=== PATIENT | female | born 1990 | race Caucasian/White ===

== ENCOUNTER 2019-06-22 20:18 | Emergency (ER) | payer BC ==
[2019-06-22] MEDS ORDERED: ONDANSETRON HCL INJ/PF 4 MG/2 ML SDV IV ONE (20:34)
[2019-06-22] MEDS ORDERED: NORMAL SALINE 1000 ML 1,000 ML IV ONE (20:34)
--- NOTE | 2019-06-22 20:35 | ER Document Report ---
ED Medical Screen (RME) - General Chief Complaint: Possible Kidney Stone Stated Complaint: POSSIBLE KIDNEY INFECTION Time Seen by Provider: 06/22/19 20:33 Primary Care Provider: RUBY NORTH [Primary Care Provider] - Follow up as needed Mode of Arrival: Ambulatory Information source: Patient Notes: Patient presents complaining of right flank pain that wraps around to the right side of abdomen for the past 2 days. Patient is concerned that she may have a kidney infection. Patient reports dysuria and nausea. No fever. Patient with a history of lupus, fibromyalgia and bipolar disorder. I have greeted and performed a rapid initial assessment of this patient. A comprehensive ED assessment and evaluation of the patient, analysis of test results and completion of the medical decision making process will be conducted by additional ED providers. Physical Exam - Vital signs Vitals: Temp Pulse Resp BP Pulse Ox 98.3 F 110 H 20 149/85 H 97 06/22/19 20:24 06/22/19 20:24 06/22/19 20:24 06/22/19 20:24 06/22/19 20:24 - Back Back: CVA tenderness - Right Course - Vital Signs Vital signs: Temp Pulse Resp BP Pulse Ox 98.3 F 110 H 20 149/85 H 97 06/22/19 20:24 06/22/19 20:24 06/22/19 20:24 06/22/19 20:24 06/22/19 20:24 Doctor's Discharge - Discharge Referrals: RUBY NORTH [Primary Care Provider] - Follow up as needed
[2019-06-22 21:26] LABS: APPEARANCE,URINE TURBID; BILIRUBIN,URINE NEGATIVE (NEGATIVE); COLOR,URINE YELLOW; GLUCOSE, URINE NEGATIVE (NEGATIVE); KETONES,URINE NEGATIVE (NEGATIVE); LEUKOCYTE ESTERASE,URINE LARGE (NEGATIVE); NITRITE,URINE NEGATIVE (NEGATIVE); PROTEIN,URINE 100 mg/dL (NEGATIVE); URINE SPECIFIC GRAVITY 1.015; UROBILINOGEN,URINE NEGATIVE mg/dL (<2.0)
[2019-06-22] MEDS ORDERED: CEFTRIAXONE 1 GM/D5W RTU 1 GM/50 ML RTUPB IV ONE (22:32)
[2019-06-22] MEDS ORDERED: MORPHINE SULFATE 10 MG/ML INJ IV ONE (22:32)
--- NOTE | 2019-06-22 22:33 | ER Document Report ---
ED GI/ - General Chief Complaint: Flank Pain Stated Complaint: POSSIBLE KIDNEY INFECTION Time Seen by Provider: 06/22/19 20:33 Mode of Arrival: Ambulatory Notes: Patient is a 28-year-old female that comes emergency department for chief complaint of right flank pain, lower abdominal pain, nausea. She states she has had dysuria for several days as well but today she worsened and started having chills as well. She denies fever, vomiting, history of kidney stones. She denies any surgeries. Past medical history of lupus, fibromyalgia, bipolar disorder. - Related Data Allergies/Adverse Reactions: iodine Allergy (Verified 06/22/19 20:36) latex Allergy (Verified 06/22/19 20:36) promethazine [From Phenergan] Allergy (Verified 06/22/19 20:36) shellfish derived Allergy (Verified 06/22/19 20:36) Sulfa (Sulfonamide Antibiotics) Allergy (Verified 06/22/19 20:36) tramadol Allergy (Verified 06/22/19 20:36) Past Medical History - General Information source: Patient - Social History Smoking Status: Never Smoker Chew tobacco use (# tins/day): No Frequency of alcohol use: None Drug Abuse: None Lives with: Family Family History: Reviewed & Not Pertinent Patient has suicidal ideation: No Patient has homicidal ideation: No Musculoskeletal Medical History: Reports Hx Fibromyalgia, Reports Hx Systemic Lupus Erythematosus Psychiatric Medical History: Reports: Hx Bipolar Disorder Past Surgical History: Reports: Hx Appendectomy, Hx Orthopedic Surgery - bilat hip replacement - Immunizations Hx Diphtheria, Pertussis, Tetanus Vaccination: Yes Review of Systems - Review of Systems Constitutional: See HPI EENT: No symptoms reported Cardiovascular: No symptoms reported Respiratory: No symptoms reported Gastrointestinal: See HPI Genitourinary: See HPI Female Genitourinary: No symptoms reported Musculoskeletal: No symptoms reported Skin: No symptoms reported Hematologic/Lymphatic: No symptoms reported Neurological/Psychological: No symptoms reported Physical Exam - Vital signs Vitals: Temp Pulse Resp BP Pulse Ox 98.3 F 110 H 20 149/85 H 97 06/22/19 20:24 06/22/19 20:24 06/22/19 20:24 06/22/19 20:24 06/22/19 20:24 - Notes Notes: GENERAL: Does not appear to be in distress, slightly ill-appearing. Still alert, cooperative, talkative HEAD: Normocephalic, atraumatic. EYES: Pupils equal, round, and reactive to light. Extraocular movements intact. ENT: Oral mucosa moist, tongue midline. Oropharynx unremarkable. Airway patent. LUNGS: Clear to auscultation bilaterally, no wheezes, rales, or rhonchi. No respiratory distress. HEART: Regular rate and rhythm. No murmur ABDOMEN: There is some mild generalized suprapubic tenderness and tenderness over the lower abdomen, nonspecific, no guarding. GENITOURINARY: Deferred EXTREMITIES: Moves all 4 extremities spontaneously. No edema, normal radial and dorsalis pedis pulses bilaterally. No cyanosis. BACK: Right-sided CVA tenderness. Left is normal. No cervical, thoracic, lumbar midline tenderness. No saddle anesthesia, normal distal neurovascular exam. Moves all extremities in full range of motion. NEUROLOGICAL: Alert and oriented x3. Normal speech. Cranial nerves II through XII grossly intact. PSYCH: Normal affect, normal mood. SKIN: Slightly flushed Course - Re-evaluation Re-evalutation: Patient has right flank pain with CVA tenderness, symptoms are very suggestive of urinary tract infection, I do suspect pyelonephritis. Patient noted to have a low-grade fever developed while she was here. Patient was medicated, given IV fluids, started on Rocephin. CBC shows leukocytosis at 14,000 with elevation of neutrophils but no bandemia, chemistry unremarkable, negative, urinalysis indicates infection. Culture placed. Discussed with patient. Because of her CVA tenderness, symptoms on one side, fever, and positive family history of kidney stones decision was made to proceed with CT to rule out infected ureterolithiasis. CT shows hydronephrosis but no stone. Patient is not vomiting. On reevaluation she states she feels much better. Patient appears much improved. She is nontoxic in appearance. Patient will be treated with antibiotics, discussed expectations, follow-up, and strict return precautions. Patient states appreciation and agreement. Stable and well-appearing at time of discharge with pending blood cultures. I did discuss using Levaquin or Cipro but after discussing this and patient's multiple medications decision was to use cephalexin instead because of the side effect profile. - Vital Signs Vital signs: Temp Pulse Resp BP Pulse Ox 99.0 F 102 H 16 148/85 H 100 06/23/19 01:01 06/23/19 01:01 06/23/19 01:01 06/23/19 01:01 06/23/19 01:01 - Laboratory Result Diagrams: 06/22/19 22:32 06/22/19 22:32 Laboratory results interpreted by me: 06/22/19 06/22/19 06/22/19 21:05 22:32 22:32 WBC 12.3 H Hgb 10.6 L Hct 32.6 L MCH 26.3 L RDW 16.2 H Absolute Neuts (auto) 9.3 H AST 40 H ALT 76 H Urine Protein 100 H Urine Blood LARGE H Ur Leukocyte Esterase LARGE H Discharge - Discharge Clinical Impression: Right flank pain, Pyelonephritis Fever Qualifiers: Fever type: unspecified Qualified Code(s): R50.9 - Fever, unspecified Condition: Stable Disposition: HOME, SELF-CARE Additional Instructions: Your work-up is consistent with pyelonephritis, kidney infection. Take antibiotics as prescribed to completion, take nausea and pain medication if needed. Afterwards take the Diflucan pill to avoid yeast infection. Follow-up with your primary care provider. Your liver function tests were borderline elevated today, these need to be repeated. We do have blood and urine cultures pending, you will be contacted for any sheldon rning results. Return if you worsen including severe worsening pain, vomiting, continued spiking fevers, or any other concerning or worsening symptoms. Prescriptions: Fluconazole [Diflucan] 150 mg PO ONCE PRN #3 tablet PRN Reason: Cephalexin Monohydrate [Keflex 500 mg Capsule] 500 mg PO QID #28 capsule Oxycodone HCl [Oxy-Ir 5 mg Tablet] 5 mg PO TID PRN #10 tab PRN Reason: Ondansetron [Zofran Odt 4 mg Tablet] 1 - 2 tab PO Q4H PRN #15 tab.rapdis PRN Reason: For Nausea/Vomiting
[2019-06-22 22:47] LABS: ABSOLUTE EOSINOPHILS # (AUTO) 0.1 10^3/uL (0.0-0.6); ABSOLUTE LYMPHOCYTES (AUTO) 1.9 10^3/uL (0.5-4.7); ABSOLUTE MONOCYTES (AUTO) 0.9 10^3/uL (0.1-1.4); ABSOLUTE NEUT (AUTO) 9.3 10^3/uL (1.7-8.2); BASOPHILS % (AUTO) 0.3 % (0-2); EOSINOPHILS % (AUTO) 0.9 % (0-6); HEMATOCRIT 32.6 % (36.0-47.0); HEMOGLOBIN 10.6 g/dL (12.0-15.5); LYMPHOCYTES % (AUTO) 15.6 % (13-45); MEAN CORPUSCULAR HEMOGLOBIN 26.3 pg (27.0-33.4); MEAN CORPUSCULAR HGB CONC 32.5 g/dL (32.0-36.0); MEAN CORPUSCULAR VOLUME 81 fl (80-97); MONOCYTES % (AUTO) 7.6 % (3-13); PLATELET COUNT 254 10^3/uL (150-450); RED BLOOD COUNT 4.03 10^6/uL (3.72-5.28); RED CELL DISTRIBUTION WIDTH 16.2 % (11.5-14.0); SEGMENTED NEUTROPHILS % (AUTO) 75.6 % (42-78); TOTAL CELLS COUNTED % (AUTO) 100 %; WHITE BLOOD COUNT 12.3 10^3/uL (4.0-10.5)
[2019-06-22] MEDS ORDERED: ACETAMINOPHEN 325 MG TABLET PO ONE (22:49)
[2019-06-22] MEDS ORDERED: KETOROLAC TROMETHAMINE INJ/PF 30 MG/1 ML SDV IV ONE (22:49)
[2019-06-22 23:12] LABS: ALKALINE PHOSPHATASE 84 U/L (38-126); ANION GAP 10 (5-19); ASPARTATE AMINO TRANSFERASE 40 U/L (14-36); BILIRUBIN,DIRECT 0.3 mg/dL (0.0-0.4); BILIRUBIN,TOTAL 0.4 mg/dL (0.2-1.3); BLOOD UREA NITROGEN 10 mg/dL (7-20); CALCIUM 9.4 mg/dL (8.4-10.2); CARBON DIOXIDE 25 mmol/L (22-30); CHLORIDE 104 mmol/L (98-107); GLUCOSE 93 mg/dL (75-110); POTASSIUM 4.2 mmol/L (3.6-5.0); TOTAL PROTEIN 7.3 g/dL (6.3-8.2)
--- NOTE | 2019-06-23 00:33 | RADIOLOGY REPORT (SQ) ---
CLINICAL INDICATION: right flank pain, fever. . TECHNIQUE: Noncontrast spiral axial CT imaging was obtained of the abdomen and pelvis with multiplanar reconstructions. This exam was performed according to our departmental dose-optimization program, which includes automated exposure control, adjustment of the mA and/or kV according to patient size and/or use of iterative reconstruction techniques. COMPARISON: None. CORRELATION: None. FINDINGS: Abdomen: The lung bases are grossly clear. The heart is of normal size. No evidence of pleural or pericardial fluid. The liver is fatty infiltrated. The gallbladder is nondistended without inflammatory change. The pancreas is of grossly normal contour on this noncontrast examination. The spleen is unremarkable. The adrenals are unremarkable. The kidneys demonstrate a mild right hydronephrosis and hydroureter. A calculus is not seen. Mild fullness to the left collecting system and ureter. There is no evidence of free air. No free fluid. No bulky adenopathy. Abdominal aorta is nonaneurysmal. Pelvis: The bowel is nonobstructed. The bowel is unopacified with oral contrast. Pelvic contents are obscured by artifact from bilateral hip prostheses. The appendix is not seen. No pericecal inflammatory change. Visualized bones are unremarkable. IMPRESSION: Mild right hydronephrosis hydroureter and mild fullness of the left collecting system and ureter without obstructing calculus identified. Hepatic steatosis.
[2019-06-23] MEDS ORDERED: ONDANSETRON ODT 4 MG TAB (6 TAB/ER DISP) PO PRN (00:40)
[2019-06-23] MEDS ORDERED: HYDROCODONE/ACETAMINOPHEN 5-325 MG (6 TAB/ER DISP) PO PRN (00:40)
[2019-06-23 01:02] VITALS: BP 148/85
== END 2019-06-23 01:01 | disposition home or self-care (01) ==
LOC: ER 20:18
DX: N12 Tubulo-interstitial nephritis, not specified as acute or chronic (principal); R50.9 Fever, unspecified; R11.0 Nausea; R10.9 Unspecified abdominal pain; R10.30 Lower abdominal pain, unspecified; Z91.040 Latex allergy status; Z88.8 Allergy status to other drugs, medicaments and biological substances; Z91.013 Allergy to seafood; Z88.2 Allergy status to sulfonamides; Z88.6 Allergy status to analgesic agent
CPT/HCPCS: 99284; 96361; 96375; 96365; 36415; 87040; 87086; 84703; 85025; 87077; 87088; 80053; 81001; 87186; 74176; J1885; J2270; J2405; J7030; J0696

== ENCOUNTER 2019-06-23 07:43 | Emergency (ER) | payer BC ==
[2019-06-23 08:35] LABS: ABSOLUTE EOSINOPHILS # (AUTO) 0.1 10^3/uL (0.0-0.6); ABSOLUTE LYMPHOCYTES (AUTO) 1.5 10^3/uL (0.5-4.7); ABSOLUTE MONOCYTES (AUTO) 0.9 10^3/uL (0.1-1.4); ABSOLUTE NEUT (AUTO) 14.2 10^3/uL (1.7-8.2); BASOPHILS % (AUTO) 0.1 % (0-2); EOSINOPHILS % (AUTO) 0.6 % (0-6); HEMATOCRIT 39.4 % (36.0-47.0); LYMPHOCYTES % (AUTO) 8.9 % (13-45); MEAN CORPUSCULAR HEMOGLOBIN 26.2 pg (27.0-33.4); MEAN CORPUSCULAR HGB CONC 32.4 g/dL (32.0-36.0); MEAN CORPUSCULAR VOLUME 81 fl (80-97); MONOCYTES % (AUTO) 5.3 % (3-13); PLATELET COUNT 284 10^3/uL (150-450); RED BLOOD COUNT 4.88 10^6/uL (3.72-5.28); RED CELL DISTRIBUTION WIDTH 16.7 % (11.5-14.0); SEGMENTED NEUTROPHILS % (AUTO) 85.1 % (42-78); TOTAL CELLS COUNTED % (AUTO) 100 %; WHITE BLOOD COUNT 16.7 10^3/uL (4.0-10.5)
[2019-06-23 08:37] LABS: HEMOGLOBIN 12.8 g/dL (12.0-15.5)
[2019-06-23 08:52] LABS: ALBUMIN 4.3 g/dL (3.5-5.0); ALKALINE PHOSPHATASE 99 U/L (38-126); ANION GAP 10 (5-19); ASPARTATE AMINO TRANSFERASE 37 U/L (14-36); BILIRUBIN,DIRECT 0.4 mg/dL (0.0-0.4); BLOOD UREA NITROGEN 7 mg/dL (7-20); CALCIUM 9.4 mg/dL (8.4-10.2); CARBON DIOXIDE 25 mmol/L (22-30); CHLORIDE 102 mmol/L (98-107); GLUCOSE 99 mg/dL (75-110); POTASSIUM 3.9 mmol/L (3.6-5.0); TOTAL PROTEIN 7.5 g/dL (6.3-8.2)
[2019-06-23] MEDS ORDERED: NORMAL SALINE 1000 ML 1,000 ML IV ONE (08:52)
[2019-06-23] MEDS ORDERED: HYDROMORPHONE HCL INJ/PF 2 MG/ML AMPULE IV ONE (08:54)
[2019-06-23] MEDS ORDERED: ONDANSETRON HCL INJ/PF 4 MG/2 ML SDV IV ONE (08:55)
[2019-06-23] MEDS ORDERED: LEVOFLOXACIN 750 MG/D5W RTU 750 MG/150 ML RTUPB IV ONE (08:56)
[2019-06-23] MEDS ORDERED: KETOROLAC TROMETHAMINE INJ/PF 30 MG/1 ML SDV IV ONE (09:00)
--- NOTE | 2019-06-23 11:41 | ER Document Report ---
Entered by NANDINI SMALLS SCRIBE 06/23/19 0801 Acting as scribe for:MATTY BOB MD ED General - General Chief Complaint: Nausea Stated Complaint: FEVER/NAUSEA Time Seen by Provider: 06/23/19 07:59 Information source: Patient Notes: This 28-year-old female presents to the emergency department complaining of continued fever and nausea since discharge this morning at 1 AM. Patient said that a few days ago, she started having UTI symptoms. This symptoms included dysuria, urination frequency and bladder pain. Patient said that she gets UTIs frequently due to her lupus condition with her last UTI being in January. Patient stated that yesterday after lunch, she had right flank pain and she laid down with no relief. Patient said that when she was here last night, she was told she had a swollen kidney and was given medication. She said she returned to the emergency department due to instruction that if symptoms continued she should return. Patient said that she has continued to have fevers with associated diaphoresis. Patient reports vomiting bile, flank pain, and denies d iarrhea. Nurse stated that with recent Zofran dose, patient has not vomited and patient's fever has declined with Tylenol dose from 102 to 99.2. - Related Data Allergies/Adverse Reactions: iodine Allergy (Verified 06/22/19 20:36) latex Allergy (Verified 06/22/19 20:36) promethazine [From Phenergan] Allergy (Verified 06/22/19 20:36) shellfish derived Allergy (Verified 06/22/19 20:36) Sulfa (Sulfonamide Antibiotics) Allergy (Verified 06/22/19 20:36) tramadol Allergy (Verified 06/22/19 20:36) Past Medical History - General Information source: Patient - Social History Smoking Status: Never Smoker Cigarette use (# per day): No Chew tobacco use (# tins/day): No Frequency of alcohol use: None Drug Abuse: None Family History: Reviewed & Not Pertinent - Past Medical History Cardiac Medical History: Reports: Hx Hypertension Musculoskeletal Medical History: Reports Hx Fibromyalgia, Reports Hx Systemic Lupus Erythematosus Psychiatric Medical History: Reports: Hx Bipolar Disorder Past Surgical History: Reports: Hx Appendectomy, Hx Orthopedic Surgery - bilat hip replacement - Immunizations Hx Diphtheria, Pertussis, Tetanus Vaccination: Yes Review of Systems - Review of Systems Constitutional: See HPI, Diaphoresis, Fever EENT: No symptoms reported Cardiovascular: No symptoms reported Respiratory: No symptoms reported Gastrointestinal: See HPI, Nausea, Vomiting. denies: Diarrhea Genitourinary: See HPI, Dysuria, Frequency, Flank pain, Pain Female Genitourinary: No symptoms reported Musculoskeletal: No symptoms reported Skin: No symptoms reported Hematologic/Lymphatic: No symptoms reported Neurological/Psychological: No symptoms reported -: Yes All other systems reviewed and negative Physical Exam - Vital signs Vitals: Resp Pulse Ox 36 H 96 06/23/19 08:00 06/23/19 08:00 - Notes Notes: Physical Exam: General: Alert, appears well. Diaphoretic on forehead. HEENT: Normocephalic. Atraumatic. PERRL. Extraocular movements intact. Oropharynx clear. Neck: Supple. Non-tender. Respiratory: No respiratory distress. Clear and equal breath sounds bilaterally. Cardiovascular: Regular rate and rhythm. Abdominal: Obese. Non-tender. No distension. Normal Bowel Sounds. Back: CVA tenderness to percussion. Right flank tenderness to palpation. Extremities: Moves all four extremities. Upper extremities: Normal inspection. Normal ROM. Lower extremities: Normal inspection. No edema. Normal ROM. Neurological: Normal cognition. AAOx4. Normal speech. Psychological: Normal affect. Normal Mood. Skin: Warm. Diaphoretic. Normal color. Course - Re-evaluation Re-evalutation: 06/23/19 11:34 Patient resting comfortably not showing any signs of distress at this time afebrile hemodynamically stable. Pain is improved as well. - Vital Signs Vital signs: Temp Pulse Resp BP Pulse Ox 99.2 F 23 H 108/56 L 100 06/23/19 09:51 06/23/19 10:01 06/23/19 10:01 06/23/19 10:01 - Laboratory Result Diagrams: 06/23/19 07:33 06/23/19 07:33 Laboratory results interpreted by me: 06/23/19 06/23/19 07:33 07:33 WBC 16.7 H MCH 26.2 L RDW 16.7 H Lymph % (Auto) 8.9 L Absolute Neuts (auto) 14.2 H Seg Neutrophils % 85.1 H Sodium 136.9 L AST 37 H ALT 75 H White blood cell count did not increase to 16,000 from prior blood work done earlier in the past 12 hours. Patient's lactic acid is in the normal range and therefore do not believe patient is septic at this time. Patient is much improved from IV Levaquin and IV fluids and Dilaudid was given for pain. Plan is to send patient home on Levaquin which she is to get 751 tablet once a day for 7 days. Patient is advised to increase fluids. She is to continue with her other prescriptions that she is received earlier which was hydrocodone and Zofran. - Diagnostic Test Radiology results interpreted by me: 06/23/19 11:[address] report from prior visit in the past 12 hours showed that there was no stones or any obstruction seen in the system there was some mild hydro- nephrosis noted on the right kidney. Otherwise CT scan was negative for any other acute process. Discharge - Discharge Clinical Impression: Urinary tract infection, Leukocytosis, Fever, Right flank pain Disposition: HOME, SELF-CARE Instructions: Antinausea Medication ([facility]), Urinary Tract Infection ([facility]) Additional Instructions: Urinary Tract Infection Your evaluation indicates that you have a urinary tract infection. This is due to germs growing in the bladder. This is a common problem. This infection usually responds quickly to antibiotics. Your antibiotic should be taken exactly as prescribed. Drink plenty of fluids -- three to four quarts a day. Occasionally, a bladder anesthetic will be prescribed to help stop the feeling of urgency until the antibiotic has a chance to clear the infection. This may cause your urine to be dark orange. Certain urine infections require a culture. If the doctor obtained a culture, the results will be back in two days. You should call to see if a change in treatment is needed. A repeat urinalysis after you finish treatment is often recommended. The physician will let you know if further testing is required. Call the doctor if you develop fever, chills, flank pain, inability to urinate, or blood in the urine. You were treated with IV Levaquin pain medications and antinausea medicine and have improved after this treatment. Plan is for you to not fill the prescription for the ciprofloxacin that was originally provided in the past 12 hours. Do continue to use the hydrocodone that was prescribed as well as the Zofran. We will change antibiotic to Levaquin 751 tablet once a day x7 days. Follow-up with primary care physician. Prescriptions: Levofloxacin [Levaquin 750 mg Tablet] 750 mg PO DAILY #7 tablet I personally performed the services described in the documentation, reviewed and edited the documentation which was dictated to the scribe in my presence, and it accurately records my words and actions.
[2019-06-23 11:50] VITALS: BP 134/105
== END 2019-06-23 11:50 | disposition home or self-care (01) ==
LOC: ER 07:43
DX: N39.0 Urinary tract infection, site not specified (principal); D72.829 Elevated white blood cell count, unspecified; R50.9 Fever, unspecified; R10.9 Unspecified abdominal pain; R11.0 Nausea; R61 Generalized hyperhidrosis; I10 Essential (primary) hypertension; Z91.040 Latex allergy status; Z88.2 Allergy status to sulfonamides; Z91.013 Allergy to seafood; Z96.643 Presence of artificial hip joint, bilateral
CPT/HCPCS: 99284; 96375; 96365; 36415; 87040; 83605; 85025; 80053; J1885; J1170; J2405; J7030; J1956; 87077

== ENCOUNTER 2019-07-26 18:20 | Observation (INO) | payer BC ==
--- NOTE | 2019-07-26 18:43 | ER Document Report ---
ED General - Related Data Home Medications: Prednisone, hydroxychloroquine, Seroquel, lithium, Cymbalta, trazodone, metoprolol <CORONA WILSON - Last Filed: 07/26/19 20:35> <THERESA FLYNN IV - Last Filed: 07/26/19 21:44> - General Chief Complaint: Allergic Reaction Stated Complaint: POSSIBLE ALLERGIC REACTION Time Seen by Provider: 07/26/19 18:32 - HPI Notes: Patient is a 29-year-old female with a history of lupus who presents to the emergency department for evaluation of an anaphylactic reaction. She was bitten by a fire ant. She states she has had reactions to these in the past. She used an EpiPen approximately 3 minutes after being bitten. She does note that it was . She states shortly afterwards she developed swelling in the back of her throat, increased difficulty breathing. She called 911. She was administered epinephrine 0.5 mg IM, Solu-Medrol, Benadryl, and H2 radha, and 2 albuterol treatments. Evidently she was having some difficulty breathing that persisted through most of her ride, but she denies any difficulty breathing, speaking, swallowing at this time. She states she will need a refill on her epinephrine. (CORONA WILSON) - Related Data Allergies/Adverse Reactions: iodine Allergy (Verified 06/22/19 20:36) latex Allergy (Verified 06/22/19 20:36) promethazine [From Phenergan] Allergy (Verified 06/22/19 20:36) shellfish derived Allergy (Verified 06/22/19 20:36) Sulfa (Sulfonamide Antibiotics) Allergy (Verified 06/22/19 20:36) tramadol Allergy (Verified 06/22/19 20:36) Past Medical History - General Information source: Patient - Social History Smoking Status: Never Smoker Family History: Reviewed & Not Pertinent - Past Medical History Cardiac Medical History: Reports: Hx Hypertension Musculoskeletal Medical History: Reports Hx Fibromyalgia, Reports Hx Systemic Lupus Erythematosus Psychiatric Medical History: Reports: Hx Bipolar Disorder Past Surgical History: Reports: Hx Appendectomy, Hx Orthopedic Surgery - bilat hip replacement - Immunizations Hx Diphtheria, Pertussis, Tetanus Vaccination: Yes <CORONA WILSON - Last Filed: 07/26/19 20:35> Review of Systems - Review of Systems EENT: See HPI Respiratory: See HPI Skin: See HPI -: Yes All other systems reviewed and negative <CORONA WILSON - Last Filed: 07/26/19 20:35> Physical Exam <CORONA WILSON - Last Filed: 07/26/19 20:35> - Vital signs Vitals: Resp BP Pulse Ox 21 H 116/63 97 07/26/19 18:25 07/26/19 18:25 07/26/19 18:25 - Notes Notes: Vital signs reviewed, please refer to chart. Head is normocephalic, atraumatic. Pupils equal round, reactive to light. Neck is supple without meningismus. Heart is regular rate and rhythm. Lungs are clear to auscultation bilaterally. Abdomen is soft, nontender, normoactive bowel sounds throughout. Extremities without cyanosis, clubbing. Posterior calves are nontender. Peripheral pulses are equal. Skin is warm and dry. There is a punctate erythematous danilo on the medial arch of the left foot consistent with ant bite. No urticaria noted. Patient is awake, alert, neurological exam is nonfocal. (CORONA WILSON) Course <CORONA WILSON - Last Filed: 07/26/19 20:35> - Consults emmett potter, gaetano, icu Time consulted: 21:40 - gaetano potter evaluated the patient and feels that she is stable enough that she can be admitted to IMCU. If her symptoms return, he stated nebulized epi could be used and he could be reconsulted if need be dr. major guadalupe, hospitalist Time consulted: 21:43 - dr. guadalupe agreed to admit pt. he was informed of gaetano potter's recommendations by this md Consulted provider: will see as inpatient <RINATHERESA IV - Last Filed: 07/26/19 21:44> - Re-evaluation Re-evalutation: 07/26/19 18:43 Patient presents to the emergency department for evaluation after an anaphylactic reaction to a ant bite. She is stable at this time. She is oxygenating at 96 to 98% on room air. She has a normal respiratory rate. Her heart rate is normal and her blood pressure is normalized. We will keep her here for observation, she is stable at this time. 07/26/19 19:35 Patient had a dry cough, stated she started to feel a strange sensation in her throat. I examined the back of her throat, her uvula is elongated, sitting on the back of her tongue. She is not wheezing. I did re-dose her with 0.15 mg of IM epinephrine, we will continue to monitor. 07/26/19 20:30 Patient feeling improved after his third dose of epinephrine. At this point she certainly is an airway risk. I am awaiting phone call from sports editor and ICU, to determine whether or not she would meet ICU criteria given concern for loss of airway. If she does not meet ICU criteria per sports editor, patient [place] be [place] [facility] 07/26/19 20:36 I spoke with Emmett Potter NP sports editor, he will come down and assess the patient for ultimate disposition. (CORONA WILSON) - Vital Signs Vital signs: Temp Pulse Resp BP Pulse Ox 97.8 F 25 H 128/82 H 99 07/26/19 18:41 07/26/19 19:01 07/26/19 19:01 07/26/19 19:01 - Consults emmett potter np, icu Reason for consultation: 07/26/19 21:40 allergic reaction requiring multiple doses of epinephrine (THERESA FLYNN IV) dr. major guadalupe, hospitalist Reason for consultation: 07/26/19 21:43 admission for severe allergic reaction (THERESA FLYNN IV) Discharge <CORONA WILSON - Last Filed: 07/26/19 20:35> - Discharge Admitting Provider: Maggy (Hospitalist) Unit Admitted: IMCU <THERESA FLYNN IV - Last Filed: 07/26/19 21:44> - Discharge Clinical Impression: Anaphylaxis Qualifiers: Encounter type: initial encounter Qualified Code(s): T78.2XXA - Anaphylactic shock, unspecified, initial encounter Condition: Stable Disposition: ADMITTED OBSERVATION
[2019-07-26] MEDS ORDERED: EPINEPHRINE INJ/PF 1 MG/1 ML AMPULE IM ONE ×2 (19:35→19:37)
[2019-07-26] MEDS ORDERED: EPINEPHRINE INJ/PF 1 MG/1 ML AMPULE ONE (19:35)
[2019-07-26] MEDS ORDERED: ONDANSETRON HCL INJ/PF 4 MG/2 ML SDV IV PRN (22:23)
[2019-07-26] MEDS ORDERED: MAGNESIUM HYDROXIDE SUSP 30 ML UDCUP PO PRN (22:23)
[2019-07-26] MEDS ORDERED: MAG HYDROX/AL HYDROX/SIMETH SUSP 30 ML UDCUP PO PRN (22:23)
[2019-07-26] MEDS ORDERED: HYDRALAZINE HCL INJ/PF 20 MG/1 ML SDV IV PRN (22:27)
[2019-07-26] MEDS ORDERED: LORAZEPAM INJ 2 MG/1 ML VIAL IV PRN (22:27)
[2019-07-26] MEDS ORDERED: GUAIFENESIN SYRP 200 MG/10 ML UDC PO PRN (22:27)
--- NOTE | 2019-07-26 23:30 | Progress Note ---
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 She utilized her personal Epi pen for initial injection without adequate relief for which she called EMS, whom gave her IM Epi, Albuterol and Atrovent nebulizer, Diphenhydramine, and Methylprednisone 125 mg. In the ED Miss Lucero experienced recrudescence of symptoms for which she received another 0.15 mg Epi IM with resolution of symptoms. The ICU was asked to evaluate Miss Lucero to determine if she needs ICU vs IMCU observation at this time. No lab work or diagnostics available. Focused Physical Exam: Constitutional: well-appearing, well-nourished, normal affect and very pleasant, in great spirits reporting "I feel so much better" Neuro: A&O x4, no weakness or focal neuro deficits, PERRLA Head/Neck: Normocephalic, atraumatic, no stridor, no significant christian/hypo pharngeal edema/erythema, moving air and swallowing without difficulty Pulm: CTA bilaterally, no wheezing CV: s1s2, 2+ peripheral pulses Abd: soft, non-tender, non-distended, endorsing hunger Skin: bite reportedly already gone by patient-location she pointed at demonstrates normal skin without any elevation, induration, erythema, or pain to touch. 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 Wears a surgical mask at work. Plan: -Okay to observe in IMCU, no need for ICU observation at this time. -Call light in reach at all times. -Liquid diet should be safe, discussed with patient and ER physician. -Elevate HOB >60 degrees overnight to prevent/limit edema. -If patient experiences recrudescence again, recommend Epinephrine nebulized breathing treatment (5 ampules of 1:1000 which is 5 mL). -No lab work or CXR necessary at this time from ICU standpoint. -It would be ideal to ensure Miss Lucero has ability to obtain new Epi pen upon discharge.
[2019-07-26] MEDS: METHYLPREDNISOLONE INJ 40 MG/1 ML SDV IV SCH (23:44)
[2019-07-26] MEDS: FAMOTIDINE 20 MG TABLET PO SCH (23:44)
--- NOTE | 2019-07-27 00:33 | PDOC H&P ---
History of Present Illness Admission Date/PCP: 07/26/19 21:48 Patient complains of: Acute allergic reaction History of Present Illness: CLEMENTE ACOSTA is a 29 year old female who presents to the emergency room via EMS with an acute allergic reaction. Patient admits that she was bitten by a fire ant on the instep of her left foot and self injected epinephrine via EpiPen within 3 minutes of the insect bite. Within 2 to 3 minutes she developed progressively worsening swelling in her throat and experienced progressively worsening dyspnea and a moderate nonproductive cough, at which time she noticed that her EpiPen was passed its expiration date. She then called 911 and EMS administered epinephrine 0.5 mg IM, Solu-Medrol 125 mg IV, IV Benadryl and an IV H2 radha while on scene. She also received 2 albuterol nebulizer treatments in route. Upon arrival in the emergency room she had improved but over her course in the emergency room she redeveloped posterior pharyngeal swelling and dyspnea resulting in 2 additional subcutaneous epinephrine injections. 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 She denies any additional associated or accompanying signs and symptoms. She denies identification of any additional aggravating or ameliorating factors for her acute allergic reaction. She was subsequently admitted on observation status to the [facility] for further evaluation and treatment. Past Medical History Cardiac Medical History: Reports: Hypertension Denies: Coronary Artery Disease, DVT, Hyperlipidema, Pulmonary Embolism Pulmonary Medical History: Denies: Asthma, Chronic Obstructive Pulmonary Disease (COPD) EENT Medical History: Denies: Cataracts, Ears - Hearing aids Neurological Medical History: Denies: Multiple Sclerosis, Seizures Endocrine Medical History: Denies: Diabetes Mellitus Type 1, Hyperthyroidism, Hypothyroidism Renal/ Medical History: Denies: Chronic Kidney Disease, Nephrolithiasis Malignancy Medical History: Reports: None GI Medical History: Denies: Cirrhosis, Crohn's Disease, Hepatitis, Ulcerative Colitis Musculoskeltal Medical History: Reports: Arthritis - Systemic lupus erythematosus, Fibromyalgia, Other - Steroid-induced osteoporosis Denies: Gout Skin Medical History: Denies: Eczema, Psoriasis Psychiatric Medical History: Reports: Bipolar Disorder Denies: Alcohol Dependency, Substance Abuse, Tobacco Dependency Traumatic Medical History: Reports: None Hematology: Denies: Anemia, Bleeding Tendencies Infectious Medical History: Reports: None Past Surgical History Past Surgical History: Reports: Appendectomy, Hip Replacement, Orthopedic Surgery - bilat hip replacement Social History Information Source: Patient Lives with: Alone Smoking Status: Never Smoker Electronic Cigarette use?: No Frequency of Alcohol Use: None Hx Recreational Drug Use: No Drugs: None Hx Prescription Drug Abuse: No - Advance Directive Resuscitation Status: Full Code Surrogate healthcare decision maker:: Vanesa Lopez Family History Family History: CAD, Hyperlipidemia, Hypertension, Malignancy, Other - Alzheimer's disease. denies: CVA, DM Parental Family History Reviewed: Yes Children Family History Reviewed: No Sibling(s) Family History Reviewed.: Yes Medication/Allergy Home Medications: Cephalexin Monohydrate [Keflex 500 mg Capsule] 500 mg PO QID #28 capsule 06/23/19 Fluconazole [Diflucan] 150 mg PO ONCE PRN #3 tablet 06/23/19 Levofloxacin [Levaquin 750 mg Tablet] 750 mg PO DAILY #7 tablet 06/23/19 Ondansetron [Zofran Odt 4 mg Tablet] 1 - 2 tab PO Q4H PRN #15 tab.rapdis 06/23/19 Oxycodone HCl [Oxy-Ir 5 mg Tablet] 5 mg PO TID PRN #10 tab 06/23/19 Allergies/Adverse Reactions: iodine Allergy (Verified 06/22/19 20:36) latex Allergy (Verified 06/22/19 20:36) promethazine [From Phenergan] Allergy (Verified 06/22/19 20:36) shellfish derived Allergy (Verified 06/22/19 20:36) Sulfa (Sulfonamide Antibiotics) Allergy (Verified 06/22/19 20:36) tramadol Allergy (Verified 06/22/19 20:36) Review of Systems Constitutional: ABSENT: chills, fever(s) Eyes: ABSENT: visual disturbances, other - Eye pain Ears: ABSENT: hearing changes, other - Ear pain Nose, Mouth, and Throat: PRESENT: as per HPI, other - Swelling in throat. ABSENT: headache(s), sore throat Cardiovascular: ABSENT: chest pain, palpitations Respiratory: PRESENT: as per HPI, cough, dyspnea Gastrointestinal: ABSENT: abdominal pain, constipation, diarrhea, nausea, vomiting Genitourinary: ABSENT: dysuria, hematuria Musculoskeletal: PRESENT: other - Chronic fibromyalgia. ABSENT: joint swelling Integumentary: ABSENT: diaphoresis, pruritus, rash Neurological: ABSENT: confusion, convulsions, focal weakness, memory loss, syncope Psychiatric: ABSENT: anxiety, depression Endocrine: ABSENT: cold intolerance, heat intolerance, polydipsia, polyphagia, polyuria Hematologic/Lymphatic: ABSENT: easy bleeding, easy bruising Allergic/Immunologic: ABSENT: seasonal rhinorrhea Physical Exam Vital Signs: Temp Pulse Resp BP Pulse Ox 97.8 F 25 H 128/82 H 99 07/26/19 18:41 07/26/19 19:01 07/26/19 19:01 07/26/19 19:01 General appearance: PRESENT: no acute distress, cooperative Head exam: PRESENT: atraumatic, normocephalic Eye exam: PRESENT: conjunctiva pink. ABSENT: conjunctival injection, scleral icterus Ear exam: PRESENT: normal external ear exam. ABSENT: bleeding, drainage Mouth exam: PRESENT: dry mucosa, neck supple, tongue midline Neck exam: ABSENT: thyromegaly, tracheal deviation Respiratory exam: PRESENT: clear to auscultation emma, symmetrical, unlabored Cardiovascular exam: PRESENT: RRR. ABSENT: clicks, gallop, rubs Pulses: PRESENT: normal radial pulses, normal dorsalis pedis pul Vascular exam: PRESENT: normal capillary refill. ABSENT: pallor GI/Abdominal exam: PRESENT: normal bowel sounds, soft Rectal exam: PRESENT: deferred Extremities exam: ABSENT: joint swelling, pedal edema Musculoskeletal exam: ABSENT: deformity, dislocation Neurological exam: PRESENT: alert, oriented to person, oriented to place, oriented to time, oriented to situation, CN II-XII grossly intact. ABSENT: motor sensory deficit Psychiatric exam: PRESENT: appropriate affect, normal mood Skin exam: PRESENT: dry, intact, warm, other - Insect bite site was observed in the ER but at the present time it is not visible.. 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 Is this a current diagnosis for this admission?: Yes (2) Pharyngeal edema Is this a current diagnosis for this admission?: Yes (3) Essential hypertension Is this a current diagnosis for this admission?: Yes (4) Fibromyalgia Is this a current diagnosis for this admission?: Yes (5) Bipolar disorder Qualifiers: Active/Remission status: remission status unspecified Qualified Code(s): F31.9 - Bipolar disorder, unspecified Is this a current diagnosis for this admission?: Yes (6) Systemic lupus erythematosus Qualifiers: Systemic lupus erythematosus type: unspecified Systemic lupus erythematosus organ involvement: unspecified Qualified Code(s): M32.9 - Systemic lupus erythematosus, unspecified Is this a current diagnosis for this admission?: Yes (7) Obesity Qualifiers: Obesity type: unspecified obesity type Obesity classification: unspecified obesity classification Serious obesity comorbidity presence: with serious comorbidity Qualified Code(s): E66.9 - Obesity, unspecified Is this a current diagnosis for this admission?: Yes - Plan Summary Summary: Patient will be admitted to [facility] on observation status and she will receive routine supportive and symptomatic cares. Her airway and O2 saturation will be monitored closely and she will be maintained on telemetry. She will receive Solu-Medrol 40 mg IV every 6 hours x3 doses. She will receive Benadryl 50 mg IV every 4 hours as needed allergy symptoms. She will also receive Ativan 1 mg IV every 4 hours as needed anxiety or restlessness. Racemic epinephrine may be administered via nebulizer if she redevelops pharyngeal or upper airway swelling. She will be continued on her usual medications, as appropriate, when her medication list has been verified and reconciled. She will receive a cardiac diet. A CBC, magnesium level and metabolic profile will be obtained in the morning for reassessment. - Time Time Spent with patient: 15-24 minutes Medications reviewed and adjusted accordingly: Yes Anticipated discharge: Home Within: within 24 hours - Inpatient Certification Based on my medical assessment, after consideration of the patient's comorbidities, presenting symptoms, or acuity I expect that the services needed warrant INPATIENT care.: No I certify that my determination is in accordance with my understanding of Medicare's requirements for reasonable and necessary INPATIENT services [42 CFR 412.3e].: No Medical Necessity: Need Close Monitoring Due to Risk of Patient Decompensation, Need For Continuous Telemetry Monitoring, Risk of Complication if Not Cared For in Hospital, Risk of Diagnosis Which Will Require Inpatient Eval/Care/Monitoring
[2019-07-27] MEDS ORDERED: TRAZODONE HCL 50 MG TABLET PO ONE (01:00)
[2019-07-27] MEDS ORDERED: QUETIAPINE FUMARATE 100 MG TABLET PO ONE (01:00)
[2019-07-27] MEDS ORDERED: LITHIUM CARBONATE 450 MG TABLET.ER PO ONE (01:00)
[2019-07-27] MEDS: ACETAMINOPHEN 325 MG TABLET PO PRN ×2 (01:01→05:15)
[2019-07-27] MEDS: METHYLPREDNISOLONE INJ 40 MG/1 ML SDV IV SCH ×2 (05:14→10:09)
[2019-07-27 05:27] LABS: HEMATOCRIT 33.9 % (36.0-47.0); HEMOGLOBIN 11.4 g/dL (12.0-15.5); MEAN CORPUSCULAR HEMOGLOBIN 26.4 pg (27.0-33.4); MEAN CORPUSCULAR HGB CONC 33.7 g/dL (32.0-36.0); MEAN CORPUSCULAR VOLUME 79 fl (80-97); PLATELET COUNT 276 10^3/uL (150-450); RED BLOOD COUNT 4.32 10^6/uL (3.72-5.28); RED CELL DISTRIBUTION WIDTH 17.5 % (11.5-14.0); WHITE BLOOD COUNT 7.8 10^3/uL (4.0-10.5)
[2019-07-27 05:51] LABS: ANION GAP 12 (5-19); BLOOD UREA NITROGEN 7 mg/dL (7-20); CALCIUM 9.9 mg/dL (8.4-10.2); CARBON DIOXIDE 17 mmol/L (22-30); CHLORIDE 109 mmol/L (98-107); GLUCOSE 150 mg/dL (75-110); POTASSIUM 4.4 mmol/L (3.6-5.0)
[2019-07-27] MEDS ORDERED: PANTOPRAZOLE SODIUM 20 MG TABLET.DR PO SCH (06:00)
[2019-07-27] MEDS ORDERED: HEPARIN SOD (PORCINE) 5,000 UNIT/ML 1 ML VIAL SUBCUT SCH (06:00)
[2019-07-27] MEDS ORDERED: DOCUSATE SODIUM 100 MG CAPSULE PO SCH (10:00)
[2019-07-27] MEDS ORDERED: HYDROXYCHLOROQUINE SULFATE 200 MG TABLET PO SCH (10:00)
[2019-07-27] MEDS ORDERED: DULOXETINE HCL 30 MG CAPSULE.DR PO SCH (10:00)
[2019-07-27] MEDS: FAMOTIDINE 20 MG TABLET PO SCH (10:09)
[2019-07-27 11:02] VITALS: BP 127/74
[2019-07-27] MEDS ORDERED: QUETIAPINE FUMARATE 100 MG TABLET PO SCH (22:00)
[2019-07-27] MEDS ORDERED: METOPROLOL SUCCINATE 50 MG TAB.SR.24H PO SCH (22:00)
[2019-07-27] MEDS ORDERED: TRAZODONE HCL 50 MG TABLET PO SCH (22:00)
[2019-07-27] MEDS ORDERED: LITHIUM CARBONATE 450 MG TABLET.ER PO SCH (22:00)
== END 2019-07-27 11:45 | disposition home or self-care (01) ==
LOC: ER 18:20 → EH 21:48 → 3S 23:26
PROVIDERS: ADMIT Emergency Medicine; ATTEND Emergency Medicine
DX: T63.421A Toxic effect of venom of ants, accidental (unintentional), initial encounter (principal); T78.2XXA Anaphylactic shock, unspecified, initial encounter; J39.2 Other diseases of pharynx; M32.9 Systemic lupus erythematosus, unspecified; M79.7 Fibromyalgia; F31.9 Bipolar disorder, unspecified; E66.9 Obesity, unspecified; I10 Essential (primary) hypertension; Z91.038 Other insect allergy status; Z88.2 Allergy status to sulfonamides; Z88.8 Allergy status to other drugs, medicaments and biological substances; Z91.040 Latex allergy status; Z91.013 Allergy to seafood; Z87.892 Personal history of anaphylaxis; Z79.891 Long term (current) use of opiate analgesic
CPT/HCPCS: 99285; 96372; 36415; 83735; 85027; 80048; J0171; J2920 ×2; J3490 ×2

== ENCOUNTER 2019-08-23 04:49 | Emergency (ER) | payer BC ==
[2019-08-23 06:12] LABS: ABSOLUTE BASOPHILS # (AUTO) 0.1 10^3/uL (0.0-0.2); ABSOLUTE EOSINOPHILS # (AUTO) 0.2 10^3/uL (0.0-0.6); ABSOLUTE LYMPHOCYTES (AUTO) 3.3 10^3/uL (0.5-4.7); ABSOLUTE MONOCYTES (AUTO) 0.9 10^3/uL (0.1-1.4); ABSOLUTE NEUT (AUTO) 8.7 10^3/uL (1.7-8.2); BASOPHILS % (AUTO) 0.5 % (0-2); EOSINOPHILS % (AUTO) 1.7 % (0-6); HEMATOCRIT 33.2 % (36.0-47.0); LYMPHOCYTES % (AUTO) 24.8 % (13-45); MEAN CORPUSCULAR HEMOGLOBIN 26.2 pg (27.0-33.4); MEAN CORPUSCULAR HGB CONC 33.1 g/dL (32.0-36.0); MEAN CORPUSCULAR VOLUME 79 fl (80-97); PLATELET COUNT 258 10^3/uL (150-450); RED BLOOD COUNT 4.21 10^6/uL (3.72-5.28); RED CELL DISTRIBUTION WIDTH 17.9 % (11.5-14.0); TOTAL CELLS COUNTED % (AUTO) 100 %; WHITE BLOOD COUNT 13.2 10^3/uL (4.0-10.5)
[2019-08-23 06:41] LABS: ALBUMIN 3.6 g/dL (3.5-5.0); ALKALINE PHOSPHATASE 80 U/L (38-126); ANION GAP 5 (5-19); ASPARTATE AMINO TRANSFERASE 39 U/L (14-36); BILIRUBIN,TOTAL 0.2 mg/dL (0.2-1.3); BLOOD UREA NITROGEN 16 mg/dL (7-20); CALCIUM 9.1 mg/dL (8.4-10.2); CARBON DIOXIDE 29 mmol/L (22-30); CHLORIDE 105 mmol/L (98-107); GLUCOSE 82 mg/dL (75-110); POTASSIUM 3.5 mmol/L (3.6-5.0); TOTAL PROTEIN 6.2 g/dL (6.3-8.2)
[2019-08-23 06:42] LABS: ALCOHOL < 10 mg/dL (NONE DETECTED)
--- NOTE | 2019-08-23 06:45 | ER Document Report ---
ED General - General Chief Complaint: Seizure Stated Complaint: POSSIBLE SEIZURE Time Seen by Provider: 08/23/19 06:06 - HPI Notes: Chief complaint: Seizure HPI: 29-year-old female with history of bipolar disorder, SLE, and history of seizures intermittently since age 13 presents now for evaluation of possible seizure. Patient lives with a roommate but roommate was out of town. Patient has a service dog with her at all times who provides an alert if she is having a seizure. She found herself lying on the floor with animal standing over her and believes that she had 2 seizures. Both of these were supposedly brief lasting under 5 minutes. There was no loss of bladder control. She does have some soreness of her tongue. She believes she may have hit her head when she fell to the floor. No other parts of the witness the seizures. Patient says she is continuing to take lithium and there is been no recent adjustment in her dosage. She is a non-smoker. She denies use of drugs or alcohol. She says she does not currently take any anticonvulsant medication because she rarely has seizures. Patient denies any fever, respiratory symptoms or gastrointestinal symptoms. - Related Data Allergies/Adverse Reactions: iodine Allergy (Verified 06/22/19 20:36) latex Allergy (Verified 06/22/19 20:36) promethazine [From Phenergan] Allergy (Verified 06/22/19 20:36) shellfish derived Allergy (Verified 06/22/19 20:36) Sulfa (Sulfonamide Antibiotics) Allergy (Verified 06/22/19 20:36) tramadol Allergy (Verified 06/22/19 20:36) Past Medical History - General Information source: Patient - Social History Smoking Status: Never Smoker Chew tobacco use (# tins/day): No Frequency of alcohol use: None Drug Abuse: None Family History: CAD, Hyperlipidemia, Hypertension, Malignancy, Other - Alzheimer's disease. denies: CVA, DM Patient has homicidal ideation: No - Past Medical History Cardiac Medical History: Reports: Hx Hypertension Denies: Hx Coronary Artery Disease, Hx DVT, Hx Hypercholesterolemia, Hx Pulmonary Embolism Pulmonary Medical History: Denies: Hx Asthma, Hx COPD Neurological Medical History: Reports: Hx Seizures Endocrine Medical History: Denies: Hx Diabetes Mellitus Type 1, Hx Hyperthyroidism, Hx Hypothyroidism Other: LMP normal 2 weeks ago. GI Medical History: Denies: Hx Cirrhosis, Hx Crohn's Disease, Hx Hepatitis, Hx Ulcerative Colitis Musculoskeletal Medical History: Reports Hx Arthritis - Systemic lupus erythematosus, Reports Hx Fibromyalgia, Denies Hx Gout, Reports Hx Systemic Lupus Erythematosus Skin Medical History: Denies Hx Eczema, Denies Hx Psoriasis Psychiatric Medical History: Reports: Hx Bipolar Disorder, Hx Depression Infectious Medical History: Denies: Hx Hepatitis Past Surgical History: Reports: Hx Appendectomy, Hx Orthopedic Surgery - bilat hip replacement - Immunizations Hx Diphtheria, Pertussis, Tetanus Vaccination: Yes Review of Systems - Review of Systems Notes: Constitutional: Negative for fever. HENT: Negative for sore throat. Eyes: Negative for visual changes. Cardiovascular: Negative for chest pain. Respiratory: Negative for shortness of breath. Gastrointestinal: Negative for abdominal pain, vomiting or diarrhea. Genitourinary: Negative for dysuria. Musculoskeletal: Negative for back pain. Skin: Negative for rash. Neurological: As per HPI. 10 point ROS negative except as marked above and in HPI. Physical Exam - Vital signs Vitals: Temp 98.1 F 08/23/19 05:01 - Notes Notes: GENERAL: Well-developed well-nourished appearing in no acute distress. SKIN: Good turgor no rashes. HEAD: Normocephalic atraumatic. EYES: PERRLA. EOMI. Conjunctivae and sclerae clear. EARS: CANALS AND TMS CLEAR. NOSE: CLEAR. MOUTH: Moist mucosa. Good dentition. No stridor or edema. No drooling. NECK: Supple. No masses or thyromegaly. No adenopathy. Carotids 2+ without bruits. No JVD. BACK: Symmetrical without tenderness. CHEST: Respirations unlabored. Breath sounds clear and symmetrical. HEART: Regular rhythm. No murmur gallop or rub. ABDOMEN: Soft nontender without masses, organomegaly or rebound. Bowel sounds normally active. No bruits. GENITALIA: Deferred. EXTREMITIES: No edema. No calf tenderness. Cap refill less than 1.5 seconds. Dorsalis pedis and posterior tibial pulses 3+ and symmetrical. NEUROLOGICAL: GCS 15. Alert and oriented x3. Fluent speech. Cranial nerves II through XII intact. Sensorimotor and cerebellar normal. Normal tone. PSYCHIATRIC: Appropriate affect. Course - Re-evaluation Re-evalutation: 08/23/19 09:13 Patient is now fully oriented and able to stand and walk without assistance. Her vital signs are stable. Her lithium level was therapeutic. Her chemistry profile was remarkable for some minimal elevation of transaminase values and otherwise normal. Her CBC was unremarkable. Her urinalysis and urine tox screen remarkable only for presence of benzodiazepine which we know had been administered to her therapeutically today. Noncontrast head CT is normal. EKG showed only nonspecific changes. Patient is anxious to be discharged home. After discussion of options the patient is interested in starting Keppra as an outpatient. She does not want to stay to have an IV loading dose. I will give her 500 here initially orally and then place her on a maintenance level of 500 daily and have her follow-up with primary care doctor and neurologist. - Vital Signs Vital signs: Temp Pulse Resp BP Pulse Ox 98.1 F 20 111/62 96 08/23/19 05:01 08/23/19 06:47 08/23/19 06:56 08/23/19 06:47 - Laboratory Result Diagrams: 08/23/19 06:04 08/23/19 06:04 Laboratory results interpreted by me: 08/23/19 08/23/19 08/23/19 06:04 06:04 07:32 WBC 13.2 H Hgb 11.0 L Hct 33.2 L MCV 79 L MCH 26.2 L RDW 17.9 H Absolute Neuts (auto) 8.7 H Potassium 3.5 L AST 39 H ALT 85 H Total Protein 6.2 L Urine Protein 100 H - Diagnostic Test Radiology reviewed: Reports reviewed - Normal noncontrast head CT per radiologist - EKG Interpretation by Me Additional EKG results interpreted by me: 08/23/19 09:12 Twelve-lead EKG reviewed contemporaneously by me from 0759 hrs. showing normal sinus rhythm rate of 72 normal intervals and a QRS axis of -2 degrees. The patient shows T wave inversions V1 through V3. No acute ST changes. There are no prior tracings for comparison. Clinical indication: Seizure. Discharge - Discharge Clinical Impression: Seizure Systemic lupus erythematosus Qualifiers: Systemic lupus erythematosus type: unspecified Systemic lupus erythematosus organ involvement: unspecified Qualified Code(s): M32.9 - Systemic lupus erythematosus, unspecified Condition: Stable Disposition: HOME, SELF-CARE Additional Instructions: Seizure, Known Epileptic You have had a seizure. Seizures may "break through" in an epileptic due to stress of infection or injury, a change in blood chemistry, or drug and alcohol use. Another common cause is failure to take medication as prescribed. Your doctor has evaluated your situation for the likely cause of this seizure. It is important that you follow his advice concerning any medication changes and follow-up care. Further testing of anti-seizure medication levels in your blood may be necessary. If you have a customer service driver's license, it's important that you DO NOT DRIVE until given permission by your physician. This seizure must be reported to the customer service driver's license bureau. Call the doctor or return if seizures recur, or if new or unusual symptoms arise -- such as severe headache, confusion, excessive sleepiness, local weakne ss or numbness, neck stiffness, or fever. Start Keppra as discussed. Follow-up with your primary care physician next 3 to 5 days and discuss follow- up consultation with neurologist. Return here as needed for new or worsening symptoms: Pain that is worsening or unimproved Uncontrolled vomiting High fever or shaking chills Overall worsening Prescriptions: Levetiracetam [Keppra 500 mg Tablet] 500 mg PO Q12 #60 tablet Referrals: [facility] [Provider Group] - Follow up as needed
--- NOTE | 2019-08-23 07:26 | RADIOLOGY REPORT (SQ) ---
CT of the head: 08/23/2019 6:23 AM CDT HISTORY: 29-year-old patient with seizure, closed head injury. COMPARISON: None available TECHNIQUE: Multiple axial contiguous images were obtained through the head without intravenous contrast administered. This exam was performed according to our departmental dose-optimization program, which includes automated exposure control, adjustment of the mA and/or KV according to the patient's size and/or use of iterative reconstruction technique. FINDINGS: The ventricles are within normal limits for size. Both orbits appear unremarkable. The mastoid air cells appear clear. The visualized paranasal sinuses appear clear. The calvarium is intact. No extra-axial fluid collection is seen. The kumar-white matter differentiation is within normal limits. No midline shift or mass effect is apparent. There are no findings to suggest acute intracranial hemorrhage. IMPRESSION: No acute intracranial hemorrhage is seen.
[2019-08-23 07:50] LABS: AMORPHOUS SEDIMENT,URINE TRACE /HPF; APPEARANCE,URINE TURBID; BILIRUBIN,URINE NEGATIVE (NEGATIVE); COLOR,URINE AMBER; GLUCOSE, URINE NEGATIVE (NEGATIVE); KETONES,URINE NEGATIVE (NEGATIVE); PROTEIN,URINE 100 mg/dL (NEGATIVE); URINE SPECIFIC GRAVITY 1.021; UROBILINOGEN,URINE NEGATIVE mg/dL (<2.0)
[2019-08-23 08:06] LABS: URINE AMPHETAMINES SCREEN NEGATIVE; URINE BARBITURATES SCREEN NEGATIVE; URINE COCAINE SCREEN NEGATIVE; URINE MARIJUANA (THC) SCREEN NEGATIVE; URINE METHADONE SCREEN NEGATIVE; URINE PHENCYCLIDINE SCREEN NEGATIVE
[2019-08-23 08:07] LABS: URINE BENZODIAZEPINES SCREEN UNCONFIRMED POSITIVE
[2019-08-23] MEDS ORDERED: LEVETIRACETAM 500 MG TABLET PO ONE (09:08)
[2019-08-23 09:48] VITALS: BP 104/69
--- NOTE | 2019-08-23 10:29 | EKG REPORT ---
SEVERITY:- ABNORMAL ECG - SINUS RHYTHM NONSPECIFIC T ABNORMALITIES, ANTERIOR LEADS : Confirmed by: Mingo Padilla MD 23-Aug-2019 10:28:06
== END 2019-08-23 09:47 | disposition home or self-care (01) ==
LOC: ER 04:49
DX: R56.9 Unspecified convulsions (principal); M32.9 Systemic lupus erythematosus, unspecified; Z79.899 Other long term (current) drug therapy; I10 Essential (primary) hypertension; Z91.040 Latex allergy status; Z88.8 Allergy status to other drugs, medicaments and biological substances; Z91.013 Allergy to seafood; Z88.2 Allergy status to sulfonamides; Z88.6 Allergy status to analgesic agent
CPT/HCPCS: 36415; 70450; 80053; 80178; 80307; 81001; 83735; 84703; 85025; 93005; 93010; 99284

== ENCOUNTER 2019-09-26 17:29 | Emergency (ER) | payer BC ==
--- NOTE | 2019-09-26 19:17 | ER Document Report ---
ED Medical Screen (RME) - General Stated Complaint: LUPUS PAIN Time Seen by Provider: 09/26/19 18:54 - HPI Notes: 09/26/19 19:09 29-year-old female with a history of lupus presents to the emergency room with complaints of feeling pain in her chest that started last night when she was stretching. States that her chest pain is become progressively worse. She woke up this morning and felt pain on her chest. Patient reports pain with deep breath then. Patient reports she is also had mucousy, bloody diarrhea that started this morning. Denies history of IBS or Crohn's. Patient believes she is having a lupus flare along with possible costochondritis, states she typically gets pain all of her joints but her hips because she has had bilateral hip replacements. States she is maxed out on Tylenol and Celebrex and she also takes 15 mg of prednisone daily. She does follow with Dr. 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 Patient is concerned about her chest pain and her lupus flare. Denies any fevers or chills, denies any abdominal pain, nausea or vomiting shortness of breath, neck pain I have greeted and performed a rapid initial assessment of this patient. A comprehensive ED assessment and evaluation of the patient, analysis of test results and completion of the medical decision making process will be conducted by additional ED providers. PHYSICAL EXAMINATION: GENERAL: Well-appearing, well-nourished and in no acute distress. CV: s1, s2 regular LUNGS: No respiratory distress. Reducible chest pain on chest wall. Musculoskeletal: Normal range of motion - Related Data Allergies/Adverse Reactions: iodine Allergy (Verified 09/26/19 18:51) latex Allergy (Verified 09/26/19 18:51) promethazine [From Phenergan] Allergy (Verified 09/26/19 18:51) shellfish derived Allergy (Verified 09/26/19 18:51) Sulfa (Sulfonamide Antibiotics) Allergy (Verified 09/26/19 18:51) tramadol Allergy (Verified 09/26/19 18:51) Past Medical History - Past Medical History Cardiac Medical History: Reports: Hx Hypertension Denies: Hx Coronary Artery Disease, Hx DVT, Hx Hypercholesterolemia, Hx Pulmonary Embolism Pulmonary Medical History: Denies: Hx Asthma, Hx COPD Neurological Medical History: Reports: Hx Seizures Endocrine Medical History: Denies: Hx Diabetes Mellitus Type 1, Hx Hyperthyroidism, Hx Hypothyroidism GI Medical History: Denies: Hx Cirrhosis, Hx Crohn's Disease, Hx Hepatitis, Hx Ulcerative Colitis Musculoskeltal Medical History: Reports Hx Arthritis - Systemic lupus erythematosus, Reports Hx Fibromyalgia, Denies Hx Gout, Reports Hx Systemic Lupus Erythematosus Skin Medical History: Denies Hx Eczema, Denies Hx Psoriasis Psychiatric Medical History: Reports: Hx Bipolar Disorder, Hx Depression Infectious Medical History: Denies: Hx Hepatitis Past Surgical History: Reports: Hx Appendectomy, Hx Orthopedic Surgery - bilat hip replacement - Immunizations Hx Diphtheria, Pertussis, Tetanus Vaccination: Yes Physical Exam - Vital signs Vitals: Temp Pulse Resp BP Pulse Ox 99.2 F 88 20 149/114 H 97 09/26/19 17:40 09/26/19 17:40 09/26/19 17:40 09/26/19 17:40 09/26/19 17:40 Course - Vital Signs Vital signs: Temp Pulse Resp BP Pulse Ox 99.2 F 88 20 149/114 H 97 09/26/19 17:40 09/26/19 17:40 09/26/19 17:40 09/26/19 17:40 09/26/19 17:40
--- NOTE | 2019-09-26 19:30 | RADIOLOGY REPORT (SQ) ---
EXAM DESCRIPTION: CHEST SINGLE VIEW IMAGES COMPLETED DATE/TIME: 09/26/2019 7:22 pm REASON FOR STUDY: chest pain COMPARISON: None. EXAM PARAMETERS: NUMBER OF VIEWS: One view. TECHNIQUE: Single frontal radiographic view of the chest acquired. RADIATION DOSE: NA LIMITATIONS: None. FINDINGS: LUNGS AND PLEURA: No opacities, masses or pneumothorax. No pleural effusion. MEDIASTINUM AND HILAR STRUCTURES: No masses. Contour normal. HEART AND VASCULAR STRUCTURES: Heart normal in size. Normal vasculature. BONES: No acute findings. HARDWARE: None in the chest. OTHER: No other significant finding. IMPRESSION: NO ACUTE RADIOGRAPHIC FINDING IN THE CHEST. TECHNICAL DOCUMENTATION: JOB ID: [id number] [employer]- All Rights Reserved Reading location - IP/workstation name: [email or web address]
[2019-09-26 20:43] LABS: APPEARANCE,URINE CLEAR; BILIRUBIN,URINE NEGATIVE (NEGATIVE); COLOR,URINE YELLOW; GLUCOSE, URINE NEGATIVE (NEGATIVE); KETONES,URINE NEGATIVE (NEGATIVE); LEUKOCYTE ESTERASE,URINE NEGATIVE (NEGATIVE); NITRITE,URINE NEGATIVE (NEGATIVE); PROTEIN,URINE 30 mg/dL (NEGATIVE); URINE SPECIFIC GRAVITY 1.015; UROBILINOGEN,URINE NEGATIVE mg/dL (<2.0)
[2019-09-26 21:00] LABS: ABSOLUTE BASOPHILS # (AUTO) 0.1 10^3/uL (0.0-0.2); ABSOLUTE EOSINOPHILS # (AUTO) 0.3 10^3/uL (0.0-0.6); ABSOLUTE LYMPHOCYTES (AUTO) 4.2 10^3/uL (0.5-4.7); ABSOLUTE MONOCYTES (AUTO) 1.1 10^3/uL (0.1-1.4); ABSOLUTE NEUT (AUTO) 8.8 10^3/uL (1.7-8.2); BASOPHILS % (AUTO) 0.5 % (0-2); EOSINOPHILS % (AUTO) 2.3 % (0-6); HEMATOCRIT 39.9 % (36.0-47.0); HEMOGLOBIN 12.6 g/dL (12.0-15.5); MEAN CORPUSCULAR HEMOGLOBIN 25.3 pg (27.0-33.4); MEAN CORPUSCULAR HGB CONC 31.6 g/dL (32.0-36.0); MEAN CORPUSCULAR VOLUME 80 fl (80-97); MONOCYTES % (AUTO) 7.6 % (3-13); PLATELET COUNT 290 10^3/uL (150-450); RED BLOOD COUNT 4.98 10^6/uL (3.72-5.28); RED CELL DISTRIBUTION WIDTH 18.2 % (11.5-14.0); SEGMENTED NEUTROPHILS % (AUTO) 60.6 % (42-78); TOTAL CELLS COUNTED % (AUTO) 100 %; WHITE BLOOD COUNT 14.6 10^3/uL (4.0-10.5)
--- NOTE | 2019-09-26 21:14 | ER Document Report ---
ED General Pain - General Chief Complaint: Pain All Over Stated Complaint: PAIN ALL OVER Time Seen by Provider: 09/26/19 18:54 Mode of Arrival: Ambulatory Information source: Patient Notes: 09/26/19 18:58 - Nursing Note by JIMMY LEON [facility] Num: [id number] : 1990 Patient Age: 29 c/o pain all over, pt states "lupus flair up" started yesterday and worsened last night with bilateral A/P chest wall pain. pt states chest wall pain worsens with deep breathing and torso movement, pt denies fever. Tommy Vick GLOVE TURNER assessing pt and discussing continued POC with pt Nava notes 09/26/19 19:09 29-year-old female with a history of lupus presents to the emergency room with complaints of feeling pain in her chest that started last night when she was stretching. States that her chest pain is become progressively worse. She woke up this morning and felt pain on her chest. Patient reports pain with deep breath then. Patient reports she is also had mucousy, bloody diarrhea that started this morning. Denies history of IBS or Crohn's. Patient believes she is having a lupus flare along with possible costochondritis, states she typically gets pain all of her joints but her hips because she has had bilateral hip replacements. States she is maxed out on Tylenol and Celebrex and she also takes 15 mg of prednisone daily. She does follow with Dr. Aquilino Ellis which is her supervisor [employer]lo[employer]. Patient is concerned about her chest pain and her lupus flare. Denies any fevers or chills, denies any abdominal pain, nausea or vomiting shortness of breath, neck pain my notes 29-year-old female arrives with chief complaint of diffuse chest pain and pain on inspiration. She brings Karuna her service dog with her. 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 Patient reports she has had lupus since she was 13 years old and takes 15 mg of prednisone daily and also maxed out on her Tylenol use. She reports she has had fentanyl in the past. And also she has had positive d-dimer in the past. Patient reports she is fallen several years ago and injured her ar tificial hips. Patient denies any hemoptysis. She does advise she had some loose stools this morning. She reports these were bloody stools. She denies any history of PUD. I was informed by reliable source that patient was a patient at [place] and frequented for pain medicine. She has recently moved to the area. TRAVEL OUTSIDE OF THE [place] IN LAST 30 DAYS: No - Related Data Allergies/Adverse Reactions: iodine Allergy (Verified 09/26/19 22:47) latex Allergy (Verified 09/26/19 22:47) promethazine [From Phenergan] Allergy (Verified 09/26/19 22:47) shellfish derived Allergy (Verified 09/26/19 22:47) Sulfa (Sulfonamide Antibiotics) Allergy (Verified 09/26/19 22:47) tramadol Allergy (Verified 09/26/19 22:47) Past Medical History - General Information source: Patient - Social History Smoking Status: Former Smoker Cigarette use (# per day): No Chew tobacco use (# tins/day): Yes Smoking Education Provided: No Frequency of alcohol use: None Drug Abuse: None Lives with: Family Family History: CAD, Hyperlipidemia, Hypertension, Malignancy, Other - Alzheimer's disease. denies: CVA, DM Patient has suicidal ideation: No Patient has homicidal ideation: No - Past Medical History Cardiac Medical History: Reports: Hx Hypertension Denies: Hx Coronary Artery Disease, Hx DVT, Hx Hypercholesterolemia, Hx Pulmonary Embolism Pulmonary Medical History: Denies: Hx Asthma, Hx COPD Neurological Medical History: Reports: Hx Seizures Endocrine Medical History: Denies: Hx Diabetes Mellitus Type 1, Hx Hyperthyroidism, Hx Hypothyroidism GI Medical History: Denies: Hx Cirrhosis, Hx Crohn's Disease, Hx Hepatitis, Hx Ulcerative Colitis Musculoskeletal Medical History: Reports Hx Arthritis - Systemic lupus erythematosus, Reports Hx Fibromyalgia, Denies Hx Gout, Reports Hx Systemic Lupus Erythematosus Skin Medical History: Denies Hx Eczema, Denies Hx Psoriasis Psychiatric Medical History: Reports: Hx Bipolar Disorder, Hx Depression Infectious Medical History: Denies: Hx Hepatitis Past Surgical History: Reports: Hx Appendectomy, Hx Orthopedic Surgery - bilat hip replacement - Immunizations Hx Diphtheria, Pertussis, Tetanus Vaccination: Yes Review of Systems - Review of Systems Constitutional: No symptoms reported EENT: No symptoms reported Cardiovascular: See HPI, Chest pain Respiratory: No symptoms reported Gastrointestinal: See HPI, Blood streaked bowels Genitourinary: No symptoms reported Female Genitourinary: No symptoms reported Musculoskeletal: No symptoms reported Skin: No symptoms reported Hematologic/Lymphatic: No symptoms reported Neurological/Psychological: No symptoms reported Physical Exam - Vital signs Vitals: Temp Pulse Resp BP Pulse Ox 99.2 F 88 20 149/114 H 97 09/26/19 17:40 09/26/19 17:40 09/26/19 17:40 09/26/19 17:40 09/26/19 17:40 Interpretation: Hypertensive - General General appearance: Alert - HEENT Head: Normocephalic, Atraumatic Eyes: Normal Pupils: PERRL Mouth/Lips: Normal Mucous membranes: Normal Pharynx: Normal Neck: Normal - Respiratory Respiratory status: No respiratory distress Chest status: Tender - Patient believes she may have costochondritis Breath sounds: Normal Chest palpation: Normal - Cardiovascular Rhythm: Regular Heart sounds: Normal auscultation Murmur: No - Abdominal Inspection: Normal Distension: No distension Bowel sounds: Normal Tenderness: Nontender Organomegaly: No organomegaly - Back Back: Normal - Extremities General upper extremity: Normal inspection, Nontender, Normal color, Normal ROM, Normal temperature General lower extremity: Normal inspection, Nontender, Normal color, Normal ROM, Normal temperature, Normal weight bearing. No: Luis F's sign - Neurological Neuro grossly intact: Yes Cognition: Normal Orientation: AAOx4 [place] Coma Scale Eye Opening: Spontaneous Sam Coma Scale Verbal: Oriented Sam Coma Scale Motor: Obeys Commands Sam Coma Scale Total: 15 Speech: Normal Motor strength normal: LUE, RUE, LLE, RLE Sensory: Normal - Psychological Associated symptoms: Normal affect - Skin Skin Temperature: Warm Skin Moisture: Dry Course - Vital Signs Vital signs: Temp Pulse Resp BP Pulse Ox 98.6 F 80 19 102/72 96 09/26/19 20:53 09/26/19 20:53 09/26/19 20:53 09/26/19 20:53 09/26/19 20:53 - Laboratory Result Diagrams: 09/26/19 20:32 09/26/19 20:32 Laboratory results interpreted by me: 09/26/19 09/26/19 09/26/19 19:50 20:32 20:32 WBC 14.6 H MCH 25.3 L MCHC 31.6 L RDW 18.2 H Absolute Neuts (auto) 8.8 H ESR 23 H ALT 64 H Urine Protein 30 H - Diagnostic Test Radiology reviewed: Reports reviewed Radiology results interpreted by me: 09/27/19 00:55 CTA neg Critical Care Note - Critical Care Note Total time excluding time spent on procedures (mins): 90 Discharge - Discharge Clinical Impression: Chest pain at rest Systemic lupus erythematosus Qualifiers: Systemic lupus erythematosus type: unspecified Systemic lupus erythematosus organ involvement: unspecified Qualified Code(s): M32.9 - Systemic lupus erythematosus, unspecified Fever Qualifiers: Fever type: unspecified Qualified Code(s): R50.9 - Fever, unspecified Condition: Good Disposition: HOME, SELF-CARE Additional Instructions: Follow-up with personal doctor this week return to ER as needed take pain medicines like Motrin or [id number] Voltaren gel as needed for pain. Encourage fluids and also because of your low-grade fever please maintain quarantine until your COVID-19 test has returned. If it returns positive quarantine for another 2+ weeks and if negative may come off quarantine. Prescriptions: Doxycycline Monohydrate 100 mg PO DAILY #10 capsule
[2019-09-26 21:20] LABS: ALBUMIN 4.2 g/dL (3.5-5.0); ALKALINE PHOSPHATASE 95 U/L (38-126); ANION GAP 7 (5-19); ASPARTATE AMINO TRANSFERASE 29 U/L (14-36); BILIRUBIN,TOTAL 0.3 mg/dL (0.2-1.3); BLOOD UREA NITROGEN 13 mg/dL (7-20); CALCIUM 9.7 mg/dL (8.4-10.2); CARBON DIOXIDE 25 mmol/L (22-30); CHLORIDE 105 mmol/L (98-107); GLUCOSE 77 mg/dL (75-110); POTASSIUM 4.4 mmol/L (3.6-5.0); TOTAL PROTEIN 7.4 g/dL (6.3-8.2)
[2019-09-26] MEDS ORDERED: NORMAL SALINE 1000 ML 1,000 ML IV ONE (21:53)
[2019-09-26] MEDS ORDERED: KETOROLAC TROMETHAMINE 60 MG/2 ML SDV IV ONE (21:54)
[2019-09-26] MEDS ORDERED: DIPHENHYDRAMINE HCL 50 MG/ML VIAL IV ONE (21:55)
[2019-09-26 21:58] LABS: ERYTHROCYTE SEDIMENTATION RATE 23 mm/hr (0-20)
--- NOTE | 2019-09-26 23:05 | RADIOLOGY REPORT (SQ) ---
EXAM DESCRIPTION: CTA chest with contrast CLINICAL HISTORY: 29 years Female, CHEST PAIN COMPARISON: None. TECHNIQUE: Axial images of the chest were performed utilizing intravenous contrast, with sagittal and coronal MIP images and sagittal and coronal reformatted images. This exam was performed according to our departmental dose-optimization program which includes use of Automated Exposure Control, adjustment of the mA and/or kV according to patient size and/or use of iterative reconstruction technique. FINDINGS: No evidence of pulmonary embolus. No evidence of aortic dissection. No evidence of pulmonary infiltrate or pleural effusion. No evidence of mediastinal or hilar adenopathy. Images of the upper abdomen show fatty infiltration of the liver. IMPRESSION: No acute finding.
--- NOTE | 2019-09-26 23:05 | RADIOLOGY REPORT (SQ) ---
CLINICAL INDICATION: bloody stools. TECHNIQUE: Single image(s) of the abdomen. COMPARISON: CT earlier today. FINDINGS: A nonspecific gas pattern is identified. No evidence of high grade obstruction. No evidence of free air. Osteoarthritis. Bilateral total hip prosthesis. IMPRESSION: No acute intra-abdominal process is identified. Please see report of CT
[2019-09-27] MEDS ORDERED: ONDANSETRON HCL INJ/PF 4 MG/2 ML SDV IV ONE (00:09)
[2019-09-27] MEDS ORDERED: FENTANYL CITRATE INJ/PF 100 MCG/2 ML AMPUL IV ONE (00:09)
[2019-09-27 01:31] VITALS: BP 113/70
--- NOTE | 2019-09-28 17:22 | EKG REPORT ---
SEVERITY:- BORDERLINE ECG - SINUS RHYTHM BORDERLINE T ABNORMALITIES, ANTERIOR LEADS : Confirmed by: Jolly Ortiz MD 28-Sep-2019 17:21:57
== END 2019-09-27 01:30 | disposition home or self-care (01) ==
LOC: ER 17:29
DX: M32.9 Systemic lupus erythematosus, unspecified (principal); R07.89 Other chest pain; R07.1 Chest pain on breathing; K92.1 Melena; R50.9 Fever, unspecified; R19.4 Change in bowel habit; I10 Essential (primary) hypertension; Z79.52 Long term (current) use of systemic steroids; Z87.891 Personal history of nicotine dependence; Z91.040 Latex allergy status; Z88.8 Allergy status to other drugs, medicaments and biological substances; Z91.013 Allergy to seafood; Z88.2 Allergy status to sulfonamides; Z88.6 Allergy status to analgesic agent; Z20.828 Contact with and (suspected) exposure to other viral communicable diseases
CPT/HCPCS: 93005; 99285; 96361; 96374; 96375; 36415; 85025; 85652; 87635; 81025; 80053; 81001; 84484; 71045; 74018; 71275; 93010; J1200; J1885; J3010; J2405; J7030; C9803

== ENCOUNTER 2019-09-29 22:34 | Emergency (ER) | payer BC ==
[2019-09-29 23:04] LABS: ABSOLUTE EOSINOPHILS # (AUTO) 0.2 10^3/uL (0.0-0.6); ABSOLUTE LYMPHOCYTES (AUTO) 1.2 10^3/uL (0.5-4.7); ABSOLUTE MONOCYTES (AUTO) 0.2 10^3/uL (0.1-1.4); ABSOLUTE NEUT (AUTO) 8.4 10^3/uL (1.7-8.2); BASOPHILS % (AUTO) 0.1 % (0-2); EOSINOPHILS % (AUTO) 1.9 % (0-6); HEMATOCRIT 36.8 % (36.0-47.0); LYMPHOCYTES % (AUTO) 11.9 % (13-45); MEAN CORPUSCULAR HEMOGLOBIN 25.6 pg (27.0-33.4); MEAN CORPUSCULAR HGB CONC 32.6 g/dL (32.0-36.0); MEAN CORPUSCULAR VOLUME 79 fl (80-97); MONOCYTES % (AUTO) 1.6 % (3-13); PLATELET COUNT 286 10^3/uL (150-450); RED BLOOD COUNT 4.69 10^6/uL (3.72-5.28); RED CELL DISTRIBUTION WIDTH 18.6 % (11.5-14.0); SEGMENTED NEUTROPHILS % (AUTO) 84.5 % (42-78); TOTAL CELLS COUNTED % (AUTO) 100 %
[2019-09-29 23:10] LABS: ALBUMIN 3.9 g/dL (3.5-5.0); ALKALINE PHOSPHATASE 200 U/L (38-126); ANION GAP 7 (5-19); ASPARTATE AMINO TRANSFERASE 333 U/L (14-36); BILIRUBIN,DIRECT 0.4 mg/dL (0.0-0.4); BILIRUBIN,TOTAL 0.8 mg/dL (0.2-1.3); BLOOD UREA NITROGEN 12 mg/dL (7-20); CALCIUM 9.7 mg/dL (8.4-10.2); CARBON DIOXIDE 26 mmol/L (22-30); CHLORIDE 105 mmol/L (98-107); GLUCOSE 118 mg/dL (75-110); POTASSIUM 3.7 mmol/L (3.6-5.0); TOTAL PROTEIN 7.2 g/dL (6.3-8.2)
[2019-09-30] MEDS ORDERED: ONDANSETRON HCL INJ/PF 4 MG/2 ML SDV IV ONE (00:32)
[2019-09-30] MEDS ORDERED: FAMOTIDINE INJ/PF 20 MG/2 ML SDV IV ONE (00:32)
[2019-09-30 02:08] LABS: APPEARANCE,URINE SLIGHTLY-CLOUDY; BILIRUBIN,URINE NEGATIVE (NEGATIVE); COLOR,URINE AMBER; GLUCOSE, URINE NEGATIVE (NEGATIVE); KETONES,URINE NEGATIVE (NEGATIVE); LEUKOCYTE ESTERASE,URINE NEGATIVE (NEGATIVE); NITRITE,URINE NEGATIVE (NEGATIVE); PROTEIN,URINE 100 mg/dL (NEGATIVE); URINE SPECIFIC GRAVITY 1.021
--- NOTE | 2019-09-30 02:49 | RADIOLOGY REPORT (SQ) ---
Ultrasound of the right upper quadrant of the abdomen: 09/30/2019 1:45 AM CDT Technique: Multiple grayscale color Doppler images of the right upper quadrant of the abdomen were obtained. Comparison: None available History: 29-year old patient with epigastric pain. Findings: The visualized portions of the hepatic parenchyma appears diffusely echogenic. There is normal directional flow seen within the main portal vein. There is no evidence of pericholecystic fluid, gallbladder wall thickening, or cholelithiasis. The common duct measures 2-3 mm. The right kidney measures up to 10.8 cm in length. The right kidney demonstrates normal cortical echogenicity with no evidence to suggest hydronephrosis. The visualized portions of the IVC, abdominal aorta, and pancreatic head appear normal. No free intraperitoneal fluid is seen. Impression: No sonographic abnormality is seen within the right upper quadrant of the abdomen.
--- NOTE | 2019-09-30 02:50 | ER Document Report ---
ED General - General Chief Complaint: Vomiting/Diarrhea Stated Complaint: VOMITING BLOOD Time Seen by Provider: 09/30/19 00:15 TRAVEL OUTSIDE OF THE [place] IN LAST 30 DAYS: No - HPI Notes: Chief complaint: Vomiting and diarrhea History of present illness: 29-year-old female seen here several days ago in the emergency department by Dr. king with complaint of chest discomfort and also noted some diarrhea at that time. She states she was told by Dr. King that she might have a stomach ulcer although in reviewing his notes this does not seem to be the impression it was recorded in the chart. She is come back in tonight saying that she is having more vomiting and diarrhea and saw streaks of blood in her vomitus and thought she saw blood in her stools also. She denies syncope or presyncope. She says she has had some cramping epigastric discomfort. She has a history of SLE and has been followed by a meteorologist liaison in [facility]. She additionally has past medical history remarkable for some type of a seizure disorder although she says she is not on anticonvulsant medications. She reports that she has a history of bipolar disorder. She also has had bilateral hip replacement due to avascular necrosis. She denies any known history of peptic ulcer disease. - Related Data Allergies/Adverse Reactions: iodine Allergy (Verified 09/26/19 22:47) latex Allergy (Verified 09/26/19 22:47) promethazine [From Phenergan] Allergy (Verified 09/26/19 22:47) shellfish derived Allergy (Verified 09/26/19 22:47) Sulfa (Sulfonamide Antibiotics) Allergy (Verified 09/26/19 22:47) tramadol Allergy (Verified 09/26/19 22:47) Past Medical History - General Information source: Patient - Social History Smoking Status: Former Smoker Frequency of alcohol use: None Drug Abuse: None Family History: CAD, Hyperlipidemia, Hypertension, Malignancy, Other - Alzheimer's disease. denies: CVA, DM Patient has homicidal ideation: No - Past Medical History Cardiac Medical History: Reports: Hx Hypertension Denies: Hx Coronary Artery Disease, Hx DVT, Hx Hypercholesterolemia, Hx Pulmonary Embolism Pulmonary Medical History: Denies: Hx Asthma, Hx COPD Neurological Medical History: Reports: Hx Seizures Endocrine Medical History: Denies: Hx Diabetes Mellitus Type 1, Hx Hyperthyroidism, Hx Hypothyroidism GI Medical History: Denies: Hx Cirrhosis, Hx Crohn's Disease, Hx Hepatitis, Hx Ulcerative Colitis Musculoskeletal Medical History: Reports Hx Arthritis - Systemic lupus erythematosus, Reports Hx Fibromyalgia, Denies Hx Gout, Reports Hx Systemic Lupus Erythematosus Skin Medical History: Denies Hx Eczema, Denies Hx Psoriasis Psychiatric Medical History: Reports: Hx Bipolar Disorder, Hx Depression Infectious Medical History: Denies: Hx Hepatitis Past Surgical History: Reports: Hx Appendectomy, Hx Orthopedic Surgery - bilat hip replacement - Immunizations Hx Diphtheria, Pertussis, Tetanus Vaccination: Yes Review of Systems - Review of Systems Notes: Constitutional: Negative for fever. HENT: Negative for sore throat. Eyes: Negative for visual changes. Cardiovascular: Negative for chest pain. Respiratory: Negative for shortness of breath. Gastrointestinal: As per HPI. Genitourinary: Negative for dysuria. Musculoskeletal: Chronic hip and back pain. Skin: Negative for rash. Neurological: Negative for headaches, focal weakness or numbness. 10 point ROS negative except as marked above and in HPI. Physical Exam - Vital signs Vitals: Temp Resp BP Pulse Ox 98.6 F 17 124/80 100 09/29/19 22:40 09/29/19 22:40 09/29/19 22:40 09/29/19 22:40 - Notes Notes: GENERAL: Obese female of approximately stated age appearing in no acute distre ss. SKIN: Good turgor no rashes. HEAD: Normocephalic atraumatic. EYES: PERRLA. EOMI. Conjunctivae and sclerae clear. EARS: CANALS AND TMS CLEAR. NOSE: CLEAR. MOUTH: Moist mucosa. Good dentition. No stridor or edema. No drooling. NECK: Supple. No masses or thyromegaly. No adenopathy. Carotids 2+ without bruits. No JVD. BACK: Symmetrical without tenderness. CHEST: Respirations unlabored. Breath sounds clear and symmetrical. HEART: Regular rhythm. No murmur gallop or rub. ABDOMEN: Obese. Minimal tenderness of epigastrium. Soft nontender without masses, organomegaly or rebound. Bowel sounds normally active. No bruits. Rectal: No gross blood. Small amount of light brown stool which is very weakly heme positive. EXTREMITIES: No edema. No calf tenderness. Cap refill less than 1.5 seconds. Dorsalis pedis and posterior tibial pulses 3+ and symmetrical. NEUROLOGICAL: GCS 15. Alert and oriented x3. Normal gait. Fluent speech. Cranial nerves II through XII intact. Sensorimotor and cerebellar normal. Normal tone. PSYCHIATRIC: Dramatic affect. Course - Re-evaluation Re-evalutation: 09/30/19 02:52 Patient has a normal hemoglobin/hematocrit. She is not orthostatic. No vomiting noted here. Minimal tenderness of her abdomen. I do note that she has some elevation of her transaminase values and looking back through her chart I see that she had a CT scan abdomen pelvis here about 3 months ago which showed fatty infiltration of the liver. Because she is slightly tender tonight and go to go ahead and get a gallbladder ultrasound. I also gave her some IV Protonix. 09/30/19 03:07 Negative right upper quadrant ultrasound per radiologist. Patient is not orthostatic. Her hemoglobin is normal. Her stool was weakly heme positive. She has minimal epigastric tenderness. I think her findings are most consistent with acute gastritis. Patient is already taking an H2 radha. I will add Carafate and refer her to GI and primary care for follow-up. Findings, clinical impression and plan of treatment have been discussed with patient/family. Understanding of current findings and recommendations has been acknowledged by them and there is agreement regarding disposition and follow-up. - Vital Signs Vital signs: Temp Pulse Resp BP Pulse Ox 98.6 F 77 22 H 127/82 H 94 09/29/19 22:54 09/30/19 00:48 09/30/19 02:01 09/30/19 02:01 09/30/19 02:01 - Laboratory Result Diagrams: 09/29/19 22:45 09/29/19 22:45 Laboratory results interpreted by me: 09/29/19 09/29/19 09/30/19 22:45 22:45 00:07 MCV 79 L MCH 25.6 L RDW 18.6 H Lymph % (Auto) 11.9 L [place] % (Auto) 1.6 L Absolute Neuts (auto) 8.4 H Seg Neutrophils % 84.5 H Glucose 118 H AST 333 H ALT 481 H Alkaline Phosphatase 200 H Urine Protein 100 H Urine Blood MODERATE H Urine Urobilinogen 4.0 H - Diagnostic Test Radiology reviewed: Reports reviewed - Normal right upper quadrant ultrasound per radiologist. Discharge - Discharge Clinical Impression: Acute gastritis Qualifiers: Gastritis type: unspecified gastritis Gastritis bleeding: presence of bleeding unspecified Qualified Code(s): K29.00 - Acute gastritis without bleeding Condition: Stable Disposition: HOME, SELF-CARE Additional Instructions: Gastritis You have an inflammation of the stomach called gastritis. This commonly causes upper abdominal pain, nausea, and vomiting. In severe cases, bleeding of the stomach lining can occur. Gastritis can be caused by bacteria or viruses, alcohol, or stomach-irritating drugs. Begin with sips of clear liquids. Take increasing amounts of fluid over the first 24 hours. Then start small amounts of bland foods (such as dry toast, applesauce, mashed potato). Gradually resume your usual diet. You should take antacids every two hours until the pain has subsided. Acid-suppressing drugs may be prescribed as well. Avoid aspirin, caffeine, tobacco, and alcohol. If the abdominal pain worsens, or there is evidence of major bleeding in the stomach (such as black, tarry stool, bloody or black vomit, or lightheadedness), you should return immediately. Call the doctor if you aren't improved in 24 to 36 hours. Take prescribed medication as directed. Follow-up with referral primary care physician and revenue stamper. Return here as needed for new or worsening symptoms: Pain that is worsening or unimproved Uncontrolled vomiting High fever or shaking chills Overall worsening Prescriptions: Sucralfate [Carafate 1 gm Tablet] 1 gm PO ACHS #120 tablet Referrals: DINH PEDRAZA MD [ACTIVE STAFF] - Follow up as needed [facility] [Provider Group] - Follow up as needed
[2019-09-30 03:49] VITALS: BP 114/78
== END 2019-09-30 03:48 | disposition home or self-care (01) ==
LOC: ER 22:34
DX: K29.00 Acute gastritis without bleeding (principal); R11.10 Vomiting, unspecified; R19.7 Diarrhea, unspecified; I10 Essential (primary) hypertension; Z91.040 Latex allergy status; Z91.013 Allergy to seafood
CPT/HCPCS: 99284; 96374; 96375; 36415; 85025; 82270; 80053; 81001; 76705; J2405; S0028

== ENCOUNTER 2019-11-01 19:32 | Emergency (ER) | payer BC ==
--- NOTE | 2019-11-01 20:28 | ER Document Report ---
HPI - HPI Time Seen by Provider: 11/01/19 20:22 Notes: 29-year-old female presents emergency room today for complaints of painful urination, frequency urgency and foul-smelling urine which started 3 days ago. Patient does have a history of UTIs. Denies any lower back pain. Denies any fevers or chills. Has not tried any [id number] medication. Worse with time, nothing makes better. Denies any vaginal discharge vaginal itching. Denies fevers, chills, chest pain,palpitations, shortness of breath, dyspnea, nausea, vomiting, diarrhea, abdominal pain, hematuria,blurred vision, double vision, loss of vision, speech changes, LH, dizziness, syncope, headaches, wheezing, ST, URI, neck pain, weakness, bowel or bladder dysfunction, saddle anesthesia, numbness or tingling in bilateral upper or lower extremities equally, muscle paralysis, weakness in bilateral upper or lower extremities equally or rash. Denies IV drug use. MEDICATIONS: I agree with the patient medications as charted by the RN. ALLERGIES: I agree with the allergies as charted by the RN. PAST MEDICAL HISTORY/PAST SURGICAL HISTORY: Reviewed and agree as charted by RN. SOCIAL HISTORY: Reviewed and agree as charted by RN. FAMILY HISTORY: No significant familial comorbid conditions directly related to patient complaint EXAM: Reviewed vital signs as charted by RN. REVIEW OF SYSTEMS:reviewed vital signs by RN CONSTITUTIONAL : Denies fever, chills, or sweats. Denies recent illness. EENT: Denies eye, ear, throat, or mouth pain or symptoms. Denies nasal or sinus congestion or discharge. Denies throat, tongue, or mouth swelling or difficulty swallowing. CARDIOVASCULAR: Denies chest pain. Denies palpitations or racing or irregular heart beat. Denies ankle edema. RESPIRATORY: Denies cough, cold, or chest congestion. Denies shortness of breath, difficulty breathing, or wheezing. GASTROINTESTINAL: Denies abdominal pain or distention. Denies nausea, vomiting, or diarrhea. Denies blood in vomitus, stools, or per rectum. Denies black, tarry stools. Denies constipation. GENITOURINARY: Denies difficulty urinating, painful urination. reports burning, frequency. Denies blood in urine, or discharge. FEMALE GENITOURINARY: denies vaginal bleeding, heavy or abnormal periods, irregular periods. Denies vaginal discharge or odor. MUSCULOSKELETAL: Denies back or neck pain or stiffness. Denies joint pain or swelling. SKIN: Denies rash, lesions or sores. HEMATOLOGIC : Denies easy bruising or bleeding. LYMPHATIC: Denies swollen, enlarged glands. NEUROLOGICAL: Denies confusion or altered mental status. Denies passing out or loss of consciousness. Denies dizziness or lightheadedness. Denies headache. Denies weakness or paralysis or loss of use of either side. Denies problems with gait or speech. Denies sensory loss, numbness, or tingling. Denies seizures. PSYCHIATRIC: Denies anxiety or stress. Denies depression, suicidal ideation, or homicidal ideation. ALL OTHER SYSTEMS REVIEWED AND NEGATIVE. PHYSICAL EXAMINATION: GENERAL: Well-appearing, well-nourished and in no acute distress. HEAD: Atraumatic, normocephalic. EYES: Pupils equal round and reactive to light, extraocular movements intact, conjunctiva are normal. ENT: Nares patent, oropharynx clear without exudates. Moist mucous membranes. NECK: Normal range of motion, supple without lymphadenopathy LUNGS: Breath sounds clear to auscultation bilaterally and equal. No wheezes rales or rhonchi. HEART: Regular rate and rhythm without murmurs ABDOMEN: Soft, nontender, nondistended abdomen. suprapubic tenderness. No guarding, no rebound. No masses appreciated. No CVA tenderness appreciated Female : deferred Musculoskeletal: Normal range of motion, no pitting or edema. No cyanosis. NEUROLOGICAL: Cranial nerves grossly intact. Normal speech, normal gait. Normal sensory, motor exams PSYCH: Normal mood, normal affect. SKIN: Warm, Dry, normal turgor, no rashes or lesions noted. Dictation was performed using [employer] voice recognition software - REPRODUCTIVE Reproductive: DENIES: : Past Medical History - General Information source: Patient - Social History Smoking Status: Unknown if Ever Smoked Family History: CAD, Hyperlipidemia, Hypertension, Malignancy, Other - Alzheimer's disease. denies: CVA, DM - Past Medical History Cardiac Medical History: Reports: Hx Hypertension Denies: Hx Coronary Artery Disease, Hx DVT, Hx Hypercholesterolemia, Hx Pulm onary Embolism Pulmonary Medical History: Denies: Hx Asthma, Hx COPD Neurological Medical History: Reports: Hx Seizures Endocrine Medical History: Denies: Hx Diabetes Mellitus Type 1, Hx Hyperthyroidism, Hx Hypothyroidism GI Medical History: Denies: Hx Cirrhosis, Hx Crohn's Disease, Hx Hepatitis, Hx Ulcerative Colitis Musculoskeletal Medical History: Reports Hx Arthritis - Systemic lupus erythematosus, Reports Hx Fibromyalgia, Denies Hx Gout, Reports Hx Systemic Lupus Erythematosus Skin Medical History: Denies Hx Eczema, Denies Hx Psoriasis Psychiatric Medical History: Reports: Hx Bipolar Disorder, Hx Depression Infectious Medical History: Denies: Hx Hepatitis Past Surgical History: Reports: Hx Appendectomy, Hx Orthopedic Surgery - bilat hip replacement - Immunizations Hx Diphtheria, Pertussis, Tetanus Vaccination: Yes Vertical Provider Document - CONSTITUTIONAL Agree With Documented VS: Yes Exam Limitations: No Limitations General Appearance: WD/WN - INFECTION CONTROL TRAVEL OUTSIDE OF THE [place] IN LAST 30 DAYS: No Course - Re-evaluation Re-evalutation: 11/01/19 20:26 Afebrile vital stable no distress. Urinalysis shows shows positive nitrates, leukoesterase, proteinuria. Patient will be given first dose of ciprofloxacin while she is here as all of the pharmacies are closed. Will prescribe patient a 10-day course of ciprofloxacin as well as Pyridium for metastatic. Advised to increase oral hydration. Urine culture is pending.Patient states she does tend to have resistance to Bactrim and is allergic to sulfa, Advised to increase oral hydration. Ice to follow-up with PCP after finishing course of antibiotics to make sure her UTI has cleared After performing a Medical Screening Examination, I estimate there is LOW risk for ACUTE APPENDICITIS, BOWEL OBSTRUCTION, ACUTE CHOLECYSTITIS, PERFORATED DIVERTICULITIS, INCARCERATED HERNIA, PANCREATITIS, PELVIC INFLAMMATORY DISEASE, PERFORATED ULCER, ECTOPIC , or TUBO-OVARIAN ABSCESS, thus I consider the discharge disposition reasonable. Also, there is no evidence or peritonitis, sepsis, or toxicity. I have reevaluated this patient multiple times and no significant life threatening changes are noted. The patient and I have discussed the diagnosis and risks, and we agree with discharging home with close follow-up with the understanding that symptoms and presentations can change. We also discussed returning to the Emergency Department immediately if new or worsening symptoms occur. We have discussed the symptoms which are most concerning (e.g., bloody stool, fever, changing or worsening pain, vomiting) that necessitate immediate return. 11/01/19 21:26 - Vital Signs Vital signs: Temp Pulse Resp BP Pulse Ox 98.3 F 85 20 117/98 H 99 11/01/19 19:40 11/01/19 19:40 11/01/19 19:40 11/01/19 19:40 11/01/19 19:40 Discharge - Discharge Clinical Impression: UTI (urinary tract infection) Condition: Stable Disposition: HOME, SELF-CARE Instructions: Ciprofloxacin ([facility]), Urinary Tract Infection ([facility]), Urinary Anesthetic Agent ([facility]) Additional Instructions: Your urinalysis did show that you in fact have a UTI. You were given first dose of ciprofloxacin today, urine culture is pending. Please increase oral hydration to flush out UTI. I did prescribe you a 10-day course of ciproflo xacin as well as Pyridium to help with the dysuria pain. Please follow-up with your primary care provider after he finished a course of antibiotics to make sure that your UTI has resolved. Return immediately for any new or worsening symptoms. Follow up with primary care provider, call tomorrow to make followup appointment. Prescriptions: Ciprofloxacin HCl [Cipro 500 mg Tablet] 500 mg PO BID #20 tablet Phenazopyridine HCl [Pyridium] 200 mg PO TIDP PRN #9 tablet PRN Reason: Referrals: FILIBERTO RENEE MD [ACTIVE STAFF] - Follow up as needed
[2019-11-01 20:59] LABS: APPEARANCE,URINE CLOUDY; BILIRUBIN,URINE NEGATIVE (NEGATIVE); COLOR,URINE AMBER; GLUCOSE, URINE NEGATIVE (NEGATIVE); KETONES,URINE NEGATIVE (NEGATIVE); LEUKOCYTE ESTERASE,URINE LARGE (NEGATIVE); NITRITE,URINE POSITIVE (NEGATIVE); PROTEIN,URINE 100 mg/dL (NEGATIVE); URINE SPECIFIC GRAVITY 1.019
[2019-11-01] MEDS ORDERED: CIPROFLOXACIN HCL 500 MG TABLET PO ONE (21:24)
[2019-11-01 21:38] VITALS: BP 124/68
== END 2019-11-01 21:40 | disposition home or self-care (01) ==
LOC: ER 19:32
DX: N39.0 Urinary tract infection, site not specified (principal); I10 Essential (primary) hypertension; Z88.2 Allergy status to sulfonamides
CPT/HCPCS: 81001; 81025; 87086; 87088; 87186; 99283

== ENCOUNTER 2019-11-22 00:36 | Emergency (ER) | payer BC ==
[2019-11-22 01:29] LABS: APPEARANCE,URINE CLEAR; BILIRUBIN,URINE NEGATIVE (NEGATIVE); COLOR,URINE STRAW; GLUCOSE, URINE NEGATIVE (NEGATIVE); KETONES,URINE NEGATIVE (NEGATIVE); LEUKOCYTE ESTERASE,URINE NEGATIVE (NEGATIVE); NITRITE,URINE NEGATIVE (NEGATIVE); PROTEIN,URINE NEGATIVE (NEGATIVE); URINE SPECIFIC GRAVITY 1.006; UROBILINOGEN,URINE NEGATIVE mg/dL (<2.0)
[2019-11-22] MEDS ORDERED: KETOROLAC TROMETHAMINE 60 MG/2 ML SDV IM ONE (02:05)
[2019-11-22 02:11] LABS: ABSOLUTE EOSINOPHILS # (AUTO) 0.1 10^3/uL (0.0-0.6); ABSOLUTE LYMPHOCYTES (AUTO) 3.1 10^3/uL (0.5-4.7); ABSOLUTE MONOCYTES (AUTO) 0.6 10^3/uL (0.1-1.4); ABSOLUTE NEUT (AUTO) 6.9 10^3/uL (1.7-8.2); BASOPHILS % (AUTO) 0.2 % (0-2); EOSINOPHILS % (AUTO) 0.6 % (0-6); HEMOGLOBIN 12.2 g/dL (12.0-15.5); LYMPHOCYTES % (AUTO) 28.6 % (13-45); MEAN CORPUSCULAR HEMOGLOBIN 25.4 pg (27.0-33.4); MEAN CORPUSCULAR HGB CONC 32.1 g/dL (32.0-36.0); MEAN CORPUSCULAR VOLUME 79 fl (80-97); MONOCYTES % (AUTO) 5.7 % (3-13); PLATELET COUNT 276 10^3/uL (150-450); RED BLOOD COUNT 4.79 10^6/uL (3.72-5.28); RED CELL DISTRIBUTION WIDTH 18.1 % (11.5-14.0); SEGMENTED NEUTROPHILS % (AUTO) 64.9 % (42-78); TOTAL CELLS COUNTED % (AUTO) 100 %; WHITE BLOOD COUNT 10.7 10^3/uL (4.0-10.5)
[2019-11-22 02:28] LABS: ALBUMIN 4.1 g/dL (3.5-5.0); ALKALINE PHOSPHATASE 80 U/L (38-126); ANION GAP 10 (5-19); ASPARTATE AMINO TRANSFERASE 20 U/L (14-36); BILIRUBIN,DIRECT 0.3 mg/dL (0.0-0.4); BILIRUBIN,TOTAL 0.5 mg/dL (0.2-1.3); BLOOD UREA NITROGEN 11 mg/dL (7-20); CALCIUM 9.5 mg/dL (8.4-10.2); CARBON DIOXIDE 24 mmol/L (22-30); CHLORIDE 104 mmol/L (98-107); GLUCOSE 90 mg/dL (75-110); POTASSIUM 4.2 mmol/L (3.6-5.0)
--- NOTE | 2019-11-22 03:47 | ER Document Report ---
ED GI/ - General Chief Complaint: Pain With Urination Stated Complaint: FLANK PAIN Time Seen by Provider: 11/22/19 01:21 Primary Care Provider: [facility] [Provider Group] - Follow up as needed Mode of Arrival: Ambulatory Information source: Patient Notes: Patient is a 29-year-old female comes emergency room complaining of dysuria and urinary tract infection symptoms. Patient states that she was seen here on 11/01/2019 put on Cipro and states that she got better with it. States that for the past 2 days she started noticing the same type urges she had before with dysuria and some burning with urination. Patient also has a history of lupus and she currently increased her prednisone from 15 mg daily to 30 mg daily about a week ago when the symptoms started to come back. She is sexually active and states she is been with the same person now for only 2 months. She denies having any discomfort with intercourse. Patient does state that she took all of her antibiotics on the last visit. TRAVEL OUTSIDE OF THE [place] IN LAST 30 DAYS: No - HPI Patient complains to provider of: Dysuria Onset: Yesterday Timing/Duration: Gradual, Persistent Quality of pain: Achy Severity at maximum: Moderate Severity in ED: Moderate Pain Level: 3 Location: Suprapubic Vaginal bleeding (Compared to normal period): None Menstrual period history: Abnormal LMP: IUD unknown Sexual history: Active Associated symptoms: None, Dysuria Exacerbated by: Denies Relieved by: Denies Similar symptoms previously: Yes Recently seen / treated by doctor: Yes - Related Data Allergies/Adverse Reactions: iodine Allergy (Verified 09/26/19 22:47) latex Allergy (Verified 09/26/19 22:47) promethazine [From Phenergan] Allergy (Verified 09/26/19 22:47) shellfish derived Allergy (Verified 09/26/19 22:47) Sulfa (Sulfonamide Antibiotics) Allergy (Verified 09/26/19 22:47) tramadol Allergy (Verified 09/26/19 22:47) Past Medical History - General Information source: Patient - Social History Smoking Status: Never Smoker Chew tobacco use (# tins/day): No Frequency of alcohol use: None Drug Abuse: None Lives with: Family Family History: CAD, Hyperlipidemia, Hypertension, Malignancy, Other - Alzheimer's disease. denies: CVA, DM Patient has homicidal ideation: No - Past Medical History Cardiac Medical History: Reports: Hx Hypertension Denies: Hx Coronary Artery Disease, Hx DVT, Hx Hypercholesterolemia, Hx Pulmonary Embolism Pulmonary Medical History: Denies: Hx Asthma, Hx COPD Neurological Medical History: Reports: Hx Seizures Endocrine Medical History: Denies: Hx Diabetes Mellitus Type 1, Hx Hyperthyroidism, Hx Hypothyroidism GI Medical History: Denies: Hx Cirrhosis, Hx Crohn's Disease, Hx Hepatitis, Hx Ulcerative Colitis Musculoskeletal Medical History: Reports Hx Arthritis - Systemic lupus erythematosus, Reports Hx Fibromyalgia, Denies Hx Gout, Reports Hx Systemic Lupus Erythematosus Skin Medical History: Denies Hx Eczema, Denies Hx Psoriasis Psychiatric Medical History: Reports: Hx Bipolar Disorder, Hx Depression Infectious Medical History: Denies: Hx Hepatitis Past Surgical History: Reports: Hx Appendectomy, Hx Orthopedic Surgery - bilat hip replacement - Immunizations Hx Diphtheria, Pertussis, Tetanus Vaccination: Yes Review of Systems - Review of Systems Constitutional: denies: Chills, Fever, Weight loss EENT: No symptoms reported Cardiovascular: No symptoms reported Respiratory: No symptoms reported Gastrointestinal: No symptoms reported Genitourinary: Burning, Dysuria. denies: Discharge, Frequency, Flank pain, Hematuria, Urgency Female Genitourinary: See HPI Musculoskeletal: No symptoms reported Skin: No symptoms reported Hematologic/Lymphatic: No symptoms reported Neurological/Psychological: No symptoms reported -: Yes All other systems reviewed and negative Physical Exam - Vital signs Vitals: Temp Pulse Resp BP Pulse Ox 98.4 F 65 18 141/87 H 98 11/22/19 00:46 11/22/19 00:46 11/22/19 00:46 11/22/19 00:46 11/22/19 00:46 Interpretation: Hypertensive - Notes Notes: PHYSICAL EXAMINATION: GENERAL: Well-appearing, well-nourished and in no acute distress. Is coming by her service dog HEAD: Atraumatic, normocephalic. NECK: Normal range of motion, supple without lymphadenopathy LUNGS: Breath sounds clear to auscultation bilaterally and equal. No wheezes rales or rhonchi. HEART: Regular rate and rhythm without murmurs ABDOMEN: Examination patient's abdomen soft bowel sounds be present 4 quads. She is mildly tender suprapubically but in the quadrants patient is nontender to palpation and percussion. Female : deferred patient refused exam Musculoskeletal: Normal range of motion, no pitting or edema. No cyanosis. NEUROLOGICAL: Normal speech, normal gait. Normal sensory, motor exams PSYCH: Normal mood, normal affect. SKIN: Warm, Dry, normal turgor, no rashes or lesions noted. Course - Re-evaluation Re-evalutation: 11/22/19 03:43 As stated patient was seen here on 11/01/2019 was put on Cipro and had a culture run. Patient was sensitive to all antibiotics that were cultured with. She got total resolution of symptoms but shortly after finishing they came back again. Patient did inform me that she has had multiple urinary tract infections. I offered patient the opportunity to have a pelvic done since she is only been with this person for the past 2 months. She has denied any discharge or other problems however she agreed to it first but then decided she did not want me to do the pelvic. Given that she does not have anything to treat antibiotic sheehan and does not want a pelvic examination we will let patient go home and follow-up with her primary care provider. - Vital Signs Vital signs: Temp Pulse Resp BP Pulse Ox 98.0 F 73 18 133/76 H 100 11/22/19 04:04 11/22/19 04:04 11/22/19 04:04 11/22/19 04:04 11/22/19 04:04 - Laboratory Result Diagrams: 11/22/19 01:55 11/22/19 01:55 Laboratory results interpreted by me: 11/22/19 11/22/19 01:00 01:55 WBC 10.7 H MCV 79 L MCH 25.4 L RDW 18.1 H Urine Blood SMALL H Discharge - Discharge Clinical Impression: Dysuria, URETHRAL SPASM, Urethritis Condition: Stable Disposition: HOME, SELF-CARE Instructions: Urethritis ([facility]) Additional Instructions: Home and rest. Increase your fluids. Take the medication as prescribed. As we discussed currently you have no infection that I can treat with antibiotics and we do not want to cause any kind of resistance by adding an antibiotic does not needed. Given that you are having symptoms of the urinary tract infection we will treat you with your spasms with the Pyridium to see if this clears it up. I suggest you follow-up with your NURSE RESEARCHER or your PCP for further evaluation and continuation of care. Should you have any concerns or problems you can always return to ER for reevaluation. Given that you have elected not to have the pelvic exam I cannot rule out any sexually transmitted disease type processes. Again should you have any concerns you can go to the health department and get reevaluated as well for that or you can come back here to the ER for reevaluation. Prescriptions: Phenazopyridine HCl [Pyridium 200 mg Tablet] 200 mg PO TID #15 tablet Forms: Return to Work Referrals: [facility] [Provider Group] - Follow up as needed
[2019-11-22 04:05] VITALS: BP 133/76
== END 2019-11-22 04:04 | disposition home or self-care (01) ==
LOC: ER 00:36
DX: N34.2 Other urethritis (principal); N35.92 Unspecified urethral stricture, female; R30.0 Dysuria; I10 Essential (primary) hypertension; M32.9 Systemic lupus erythematosus, unspecified; Z79.52 Long term (current) use of systemic steroids; Z91.040 Latex allergy status; Z88.8 Allergy status to other drugs, medicaments and biological substances; Z91.013 Allergy to seafood; Z88.2 Allergy status to sulfonamides; Z88.6 Allergy status to analgesic agent; Z87.440 Personal history of urinary (tract) infections
CPT/HCPCS: 99284; 96372; 36415; 87086; 85025; 81025; 80053; 81001; J1885

== ENCOUNTER 2019-12-22 21:04 | Emergency (ER) | payer BC ==
[2019-12-23] MEDS ORDERED: DEXAMETHASONE SOD PHOS INJ 10 MG/1 ML VIAL IM ONE (00:34)
[2019-12-23] MEDS ORDERED: ONDANSETRON 4 MG TAB.RAPDIS PO ONE (00:34)
[2019-12-23] MEDS ORDERED: OXYCODONE-ACETAMINOPHEN 5-325 MG TABLET PO ONE (00:35)
[2019-12-23] MEDS ORDERED: HYDROCODONE/ACETAMINOPHEN 5-325 MG (6 TAB/ER DISP) PO PRN (00:38)
[2019-12-23] MEDS ORDERED: ONDANSETRON ODT 4 MG TAB (6 TAB/ER DISP) PO PRN (00:39)
--- NOTE | 2019-12-23 00:40 | ER Document Report ---
ED General - General Chief Complaint: Other Stated Complaint: OTHER Time Seen by Provider: 12/23/19 00:28 Mode of Arrival: Ambulatory Information source: Patient Notes: 29-year-old female coming in today with pain in her knees and pain in her hands. Has a history of lupus. States it feels "flared up. No trauma. TRAVEL OUTSIDE OF THE [place] IN LAST 30 DAYS: No - Related Data Allergies/Adverse Reactions: iodine Allergy (Verified 09/26/19 22:47) latex Allergy (Verified 09/26/19 22:47) promethazine [From Phenergan] Allergy (Verified 09/26/19 22:47) shellfish derived Allergy (Verified 09/26/19 22:47) Sulfa (Sulfonamide Antibiotics) Allergy (Verified 09/26/19 22:47) tramadol Allergy (Verified 09/26/19 22:47) Past Medical History - Social History Smoking Status: Unknown if Ever Smoked Family History: CAD, Hyperlipidemia, Hypertension, Malignancy, Other - Alzheimer's disease. 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 No chills. EENT: No eye redness. No eye pain. No ear pain. No sore throat. Cardiovascular: No chest pain. No palpitations. Respiratory: No cough. No shortness of breath. No respiratory distress. Gastrointestinal: No abdominal pain. No nausea, vomiting, or diarrhea. Genitourinary: Atraumatic. No lesions. No pain. No discharge. Musculoskeletal: Positive pain bilateral hands, bilateral knees Skin: No rash or lesions. Lymphatic: No swollen lymph nodes. Neurologic: No headache. No syncope. Psychiatric: No suicidal or homicidal ideation. Physical Exam - Vital signs Vitals: Temp Pulse Resp BP Pulse Ox 98.6 F 79 18 108/72 97 12/22/19 22:04 12/22/19 22:04 12/22/19 22:04 12/22/19 22:04 12/22/19 22:04 - Notes Notes: General: Well-developed, well-nourished. In no acute distress. Non-toxic appearing. Cardiac: Well-perfused. Regular rate and rhythm. No murmurs, rubs, or gallops. Pulmonary: No respiratory distress. No cyanosis. Bilateral lung fiels are clear to auscultation. Abdominal: Non-distended. Non-rigid. Bowels sounds are present in all four quadrants. No guarding or rebound. HEENT: Head is atraumatic. Conjunctivae not reddened. No tearing. PERRL. EOMI. Orbits atraumatic. No periorbital swelling or erythema. Oropharynx is without erythema, swelling, or exudates. Neck: Supple. No adenopathy. No meningismus. Dermatologic: Warm with good turgor. No rash. Atraumatic. Chest: Atraumatic. No chest wall tenderness to palpation. Musculoskeletal: Evaluation of the bilateral knees reveals no significant erythema, warmth or swelling. No bony tenderness. No deformity. Bilateral hands are evaluated. No swelling. No erythema. No heat. No crepitus. Good range of motion of all joints. Neurovascular exam intact Genitourinary: Examination deferred Neurologic: No gross neurologic deficits. Psychiatric: Normal mood. Course - Vital Signs Vital signs: Temp Pulse Resp BP Pulse Ox 98.6 F 79 18 108/72 97 12/22/19 22:04 12/22/19 22:04 12/22/19 22:04 12/22/19 22:04 12/22/19 22:04 Discharge - Discharge Clinical Impression: Musculoskeletal pain, History of lupus Condition: Good Disposition: HOME, SELF-CARE Instructions: Myalagia (Muscle Pain) ([facility]) Prescriptions: Methylprednisolone [Medrol Dosepack (4 mg/Tab) 21 Tab/Dosepak] 21 tab PO ASDIR PRN #1 dspk PRN Reason: Forms: Return to Work
[2019-12-23 01:38] VITALS: BP 131/85
== END 2019-12-23 01:38 | disposition home or self-care (01) ==
LOC: ER 21:04
DX: M32.9 Systemic lupus erythematosus, unspecified (principal); M25.561 Pain in right knee; M25.562 Pain in left knee; M79.641 Pain in right hand; M79.642 Pain in left hand; I10 Essential (primary) hypertension; Z91.040 Latex allergy status; Z88.2 Allergy status to sulfonamides; Z91.013 Allergy to seafood; Z88.6 Allergy status to analgesic agent
CPT/HCPCS: 99283; 96372; S0119; J1100

== ENCOUNTER 2020-01-16 20:56 | Emergency (ER) | payer BC ==
[2020-01-16] MEDS ORDERED: METHYLPREDNISOLONE INJ 40 MG/1 ML SDV IM ONE (21:31)
--- NOTE | 2020-01-16 22:19 | RADIOLOGY REPORT (SQ) ---
CLINICAL INDICATION: pain. . TECHNIQUE: 2 view(s) were obtained of the left hip. AP pelvis COMPARISON: None. FINDINGS: No acute displaced fracture is identified of the hip. Alignment appears anatomic. Left total hip prosthesis appears to be in good position. Surrounding soft tissues are unremarkable. IMPRESSION: No evidence of acute displaced fracture of the hip.
--- NOTE | 2020-01-16 23:40 | ER Document Report ---
ED Medical Screen (RME) - General Chief Complaint: Hip Pain Stated Complaint: HIP PAIN ON LEFT SIDE Time Seen by Provider: 01/16/20 21:23 Primary Care Provider: RONY CHANG MD [Primary Care Provider] - Follow up as needed Mode of Arrival: Ambulatory Information source: Patient Notes: HPI; 29-year-old female past medical history significant for bipolar, lupus, bi lateral hip replacements presents emergency room complaining of left hip pain that radiates down her left leg for the past week. She denies any trauma or injury. States she is taking Tylenol with minimal relief. Denies any loss of control of her bowels or bladder, no saddle anesthesia. No red flags. Denies . Arrived via [employer]. PE: Patient is alert and oriented x3. Lungs: Clear to auscultation without rales, rhonchi, wheezes. Heart: Regular rate rhythm without murmurs, rubs, gallops. Patient is nontender on palpitation over the vertebral thoracic or lumbar region. Patient does have tenderness over the left sciatic notch. Nontender to the left iliac crest. She is ambulatory with a steady gait with the use of a cane. She has negative straight leg raising bilaterally. She is neurovascularly intact. I have greeted and performed a rapid initial assessment of this patient. A comprehensive ED assessment and evaluation of the patient, analysis of test results and completion of the medical decision making process will be conducted by additional ED providers. I have specifically instructed the patient or family members with the patient to immediately return to any nursing staff should anything change in the patient's condition or with their chief complaint. TRAVEL OUTSIDE OF THE [place] IN LAST 30 DAYS: No - Related Data Allergies/Adverse Reactions: iodine Allergy (Verified 09/26/19 22:47) latex Allergy (Verified 09/26/19 22:47) promethazine [From Phenergan] Allergy (Verified 09/26/19 22:47) shellfish derived Allergy (Verified 09/26/19 22:47) Sulfa (Sulfonamide Antibiotics) Allergy (Verified 09/26/19 22:47) tramadol Allergy (Verified 09/26/19 22:47) Past Medical History - Social History Chew tobacco use (# tins/day): No Frequency of alcohol use: None Drug Abuse: None - Past Medical History Cardiac Medical History: Reports: Hx Hypertension Denies: Hx Coronary Artery Disease, Hx DVT, Hx Hypercholesterolemia, Hx Pulmonary Embolism Pulmonary Medical History: Denies: Hx Asthma, Hx COPD Neurological Medical History: Reports: Hx Seizures Endocrine Medical History: Denies: Hx Diabetes Mellitus Type 1, Hx Hyperthyroidism, Hx Hypothyroidism GI Medical History: Denies: Hx Cirrhosis, Hx Crohn's Disease, Hx Hepatitis, Hx Ulcerative Colitis Musculoskeltal Medical History: Reports Hx Arthritis - Systemic lupus erythematosus, Reports Hx Fibromyalgia, Denies Hx Gout, Reports Hx Systemic Lupus Erythematosus Skin Medical History: Denies Hx Eczema, Denies Hx Psoriasis Psychiatric Medical History: Reports: Hx Bipolar Disorder, Hx Depression Infectious Medical History: Denies: Hx Hepatitis Past Surgical History: Reports: Hx Appendectomy, Hx Orthopedic Surgery - bilat hip replacement - Immunizations Hx Diphtheria, Pertussis, Tetanus Vaccination: Yes Physical Exam - Vital signs Vitals: Temp Pulse Resp BP Pulse Ox 98.0 F 91 16 130/78 H 92 01/16/20 21:02 01/16/20 21:02 01/16/20 21:02 01/16/20 21:02 01/16/20 21:02 Course - Re-evaluation Re-evalutation: 01/16/20 23:34 Patient is just now receiving her IM Solu-Medrol. I did review the x-ray results with the patient. Patient is upset because she cannot get any medication other than Tylenol and Solu-Medrol for her pain as she does not have anyone to drive her. 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 Patient stated that "Flexeril does nothing for me". Patient has requested to be seen by another provider for further evaluation and treatment but she does not feel that my diagnosis is correct and that she is states "I am not leaving until I get something strong for pain" patient will wait to be seen by another provider when available. 01/16/20 23:40 - Vital Signs Vital signs: Temp Pulse Resp BP Pulse Ox 98.0 F 91 16 130/78 H 92 01/16/20 21:25 01/16/20 21:02 01/16/20 21:02 01/16/20 21:02 01/16/20 21:02 - Diagnostic Test Radiology reviewed: Reports reviewed Doctor's Discharge - Discharge Referrals: RONY CHANG MD [Primary Care Provider] - Follow up as needed
[2020-01-17] MEDS ORDERED: OXYCODONE-ACETAMINOPHEN 5-325 MG TABLET PO ONE (03:57)
--- NOTE | 2020-01-17 04:01 | ER Document Report ---
ED General - General Chief Complaint: Hip Pain Stated Complaint: HIP PAIN ON LEFT SIDE Time Seen by Provider: 01/16/20 21:23 Primary Care Provider: RONY CHANG MD [Primary Care Provider] - Follow up as needed Mode of Arrival: Ambulatory Notes: 49-year-old female history of lupus on steroids, left hip replacement 6 years ago secondary to osteonecrosis without complication presents with approximately 1 week of gradual onset gradually worsening left hip pain radiating to left knee aggravated by ranging hip, walking. Patient still able to ambulate. Patient denies any injuries stable, prior episodes of his pain, and complications of prior hip replacement, fever, drug use, weakness/numbness, pain elsewhere, back pain, change in gait TRAVEL OUTSIDE OF THE [place] IN LAST 30 DAYS: No - Related Data Allergies/Adverse Reactions: iodine Allergy (Verified 09/26/19 22:47) latex Allergy (Verified 09/26/19 22:47) promethazine [From Phenergan] Allergy (Verified 09/26/19 22:47) shellfish derived Allergy (Verified 09/26/19 22:47) Sulfa (Sulfonamide Antibiotics) Allergy (Verified 09/26/19 22:47) tramadol Allergy (Verified 09/26/19 22:47) Past Medical History - General Information source: Patient - Social History Smoking Status: Never Smoker Chew tobacco use (# tins/day): No Frequency of alcohol use: None Drug Abuse: None Family History: CAD, Hyperlipidemia, Hypertension, Malignancy, Other - Alzheimer's disease. denies: CVA, DM Patient has homicidal ideation: No - Past Medical History Cardiac Medical History: Reports: Hx Hypertension Denies: Hx Coronary Artery Disease, Hx DVT, Hx Hypercholesterolemia, Hx Pulmonary Embolism Pulmonary Medical History: Denies: Hx Asthma, Hx COPD Neurological Medical History: Reports: Hx Seizures Endocrine Medical History: Denies: Hx Diabetes Mellitus Type 1, Hx Hyperthyroidism, Hx Hypothyroidism GI Medical History: Denies: Hx Cirrhosis, Hx Crohn's Disease, Hx Hepatitis, Hx Ulcerative Colitis Musculoskeletal Medical History: Reports Hx Arthritis - Systemic lupus erythematosus, Reports Hx Fibromyalgia, Denies Hx Gout, Reports Hx Systemic Lupus Erythematosus Skin Medical History: Denies Hx Eczema, Denies Hx Psoriasis Psychiatric Medical History: Reports: Hx Bipolar Disorder, Hx Depression Infectious Medical History: Denies: Hx Hepatitis Past Surgical History: Reports: Hx Appendectomy, Hx Orthopedic Surgery - bilat hip replacement - Immunizations Hx Diphtheria, Pertussis, Tetanus Vaccination: Yes Review of Systems - Review of Systems Notes: REVIEW OF SYSTEMS: CONSTITUTIONAL : Denies fever, chills, or sweats. EENT: Denies recent cold/sinus symptoms, denies throat pain CARDIOVASCULAR: Denies chest pain, AURELIO RESPIRATORY: Denies cough, denies shortness of breath. GASTROINTESTINAL: Denies abdominal pain, nausea/vomiting. GENITOURINARY: Denies difficulty urinating, painful urination. FEMALE GENITOURINARY: Denies abnormal vaginal bleeding, vaginal discharge. MUSCULOSKELETAL: Denies neck pain, back pain. SKIN: Denies rash or skin lesions. HEMATOLOGIC : Denies easy bruising or bleeding. LYMPHATIC: Denies swollen, enlarged glands. NEUROLOGICAL: Denies headache, denies change in gait. PSYCHIATRIC: Denies anxiety or stress or depression. Physical Exam - Vital signs Vitals: Temp Pulse Resp BP Pulse Ox 98.0 F 91 16 130/78 H 92 01/16/20 21:02 01/16/20 21:02 01/16/20 21:02 01/16/20 21:02 01/16/20 21:02 - Notes Notes: PHYSICAL EXAMINATION: GENERAL: Well-appearing, well-nourished and in no acute distress. HEAD: Atraumatic, normocephalic. EYES: Pupils equal round and appropriate constriction, sclera anicteric, conjunctiva are normal. ENT: nares patent, moist mucous membranes. NECK: Normal range of motion, supple without lymphadenopathy LUNGS: Normal respiratory rate and effort, speaking in full sentences HEART: Regular rate, no JVD, no lower extremity edema ABDOMEN: Soft, nontender, no guarding, no masses, no CVAT EXTREMITIES: Bilateral DP pulses 2+, bilateral lower extremities sensation normal, normal bilateral lower extremity strength, normal hip inspection, no focal tenderness, pain with ranging of left hip but able to range fully NEUROLOGICAL: Awake, alert, conversing appropriately, moves all extremities spontaneously. PSYCH: Normal mood, normal affect. SKIN: Warm, Dry, normal turgor, no rashes or lesions noted. Course - Re-evaluation Re-evalutation: 01/17/20 04:07 Atraumatic hip pain, no sign of migration of the prosthesis, neurovascularly intact, ambulating at baseline, no signs of osteomyelitis, patient very well- appearing, normal exam, radiating to the knee but no knee pain and normal knee exam, instructed patient to follow-up with her orthopedic surgeon Dr. Monreal but patient states she has no car that will be difficult so we will give her the information for Dr. Jean-Baptiste who is on-call here. Gave patient extensive return to ED precautions which she demonstrated understanding of, will give short course of analgesia, patient ready for discharge. - Vital Signs Vital signs: Temp Pulse Resp BP Pulse Ox 98.0 F 91 16 130/78 H 92 01/16/20 21:25 01/16/20 21:02 01/16/20 21:02 01/16/20 21:02 01/16/20 21:02 Discharge - Discharge Clinical Impression: Hip pain Disposition: HOME, SELF-CARE Additional Instructions: Follow-up within 1 week with orthopedic surgeon. Return to the emergency depart ment immediately if you have any worsening pain, inability to walk, fever, vomiting, or any other worsening or alarming symptoms. Follow-up with your primary doctor within 1 week. Prescriptions: Oxycodone HCl/Acetaminophen [Percocet 5-325 mg Tablet] 1 tab PO Q6HP PRN #4 tablet PRN Reason: Severe Pain Referrals: RONY CHANG MD [Primary Care Provider] - Follow up as needed BUDDY JEAN-BAPTISTE MD [ACTIVE STAFF] - Follow up as needed
[2020-01-17 04:35] VITALS: BP 114/74
== END 2020-01-17 04:33 | disposition home or self-care (01) ==
LOC: ER 20:56
DX: M25.552 Pain in left hip (principal); I10 Essential (primary) hypertension; Z96.643 Presence of artificial hip joint, bilateral; Z91.040 Latex allergy status
CPT/HCPCS: 99284; 96372; 73502; J2920

== ENCOUNTER 2020-02-08 01:20 | Emergency (ER) | payer BC ==
[2020-02-08] MEDS ORDERED: NORMAL SALINE 1000 ML 1,000 ML IV ONE (01:45)
[2020-02-08] MEDS ORDERED: KETOROLAC TROMETHAMINE INJ/PF 30 MG/1 ML SDV IV ONE (01:45)
--- NOTE | 2020-02-08 01:47 | ER Document Report ---
ED Seizure - General Chief Complaint: Seizure Stated Complaint: POSSIBLE SEIZURE Time Seen by Provider: 02/08/20 01:34 Primary Care Provider: RONY CHANG MD [Primary Care Provider] - Follow up as needed Notes: Patient is a 29-year-old female comes emergency department by EMS for chief complaint of a seizure. Seizure-like symptoms happened just prior to arrival, patient states that her service dog informed her that she was going to have a seizure, she states asked her significant other to call 911, she states she got dressed and was sitting on the couch, EMS reported that they did briefly observe patient staring ahead and becoming very rigid for a brief period of time approximately a minute or so. Patient did not have tonic-clonic activity, she did not have a fall or injury. She does report a headache. EMS denies postictal period. Patient did not bite her tongue. Patient states she felt fine during the day including no sick symptoms such as fever, nausea/vomiting, chest pain abdominal pain, headache. Headache is mild currently. She denies any other complaints. Past medical history of SLE on Plaquenil and prednisone, bipolar disorder on lithium, Seroquel, Cymbalta. She states she would like a copy of her lithium level today. - Related Data Allergies/Adverse Reactions: iodine Allergy (Verified 09/26/19 22:47) latex Allergy (Verified 09/26/19 22:47) promethazine [From Phenergan] Allergy (Verified 09/26/19 22:47) shellfish derived Allergy (Verified 09/26/19 22:47) Sulfa (Sulfonamide Antibiotics) Allergy (Verified 09/26/19 22:47) tramadol Allergy (Verified 09/26/19 22:47) Home Medications: Metoprolol, prednisone, seroquel, trazadone, [place], Cymbalta Past Medical History - General Information source: Patient - Social History Smoking Status: Never Smoker Frequency of alcohol use: None Drug Abuse: None Lives with: Family Family History: CAD, Hyperlipidemia, Hypertension, Malignancy, Other - A lzheimer's disease. denies: CVA, DM Patient has homicidal ideation: No - Past Medical History Cardiac Medical History: Reports: Hx Hypertension Denies: Hx Coronary Artery Disease, Hx DVT, Hx Hypercholesterolemia, Hx Pulmonary Embolism Pulmonary Medical History: Denies: Hx Asthma, Hx COPD Neurological Medical History: Reports: Hx Seizures Endocrine Medical History: Denies: Hx Diabetes Mellitus Type 1, Hx Hyperthyroidism, Hx Hypothyroidism GI Medical History: Denies: Hx Cirrhosis, Hx Crohn's Disease, Hx Hepatitis, Hx Ulcerative Colitis Musculoskeletal Medical History: Reports Hx Arthritis - Systemic lupus erythematosus, Reports Hx Fibromyalgia, Denies Hx Gout, Reports Hx Systemic Lupus Erythematosus Skin Medical History: Denies Hx Eczema, Denies Hx Psoriasis Psychiatric Medical History: Reports: Hx Bipolar Disorder, Hx Depression Infectious Medical History: Denies: Hx Hepatitis Past Surgical History: Reports: Hx Appendectomy, Hx Orthopedic Surgery - bilat hip replacement - Immunizations Hx Diphtheria, Pertussis, Tetanus Vaccination: Yes Review of Systems - Review of Systems Constitutional: No symptoms reported EENT: No symptoms reported Cardiovascular: No symptoms reported Respiratory: No symptoms reported Gastrointestinal: No symptoms reported Genitourinary: No symptoms reported Female Genitourinary: No symptoms reported Musculoskeletal: No symptoms reported Skin: No symptoms reported Hematologic/Lymphatic: No symptoms reported Neurological/Psychological: See HPI Physical Exam - Vital signs Vitals: Temp Pulse Resp Pulse Ox 98.7 F 91 18 99 02/08/20 01:25 02/08/20 01:25 02/08/20 01:25 02/08/20 01:25 - Notes Notes: GENERAL: Alert, interacts well. No acute distress. HEAD: Normocephalic, atraumatic. EYES: Pupils equal, round, and reactive to light. Extraocular movements intact. ENT: Oral mucosa moist, tongue midline. Oropharynx unremarkable. Airway patent. Nares patent, sinuses non-tender, ear canals unremarkable, TM's intact. NECK: Full range of motion. Supple. Trachea midline. No lymphadenopathy. LUNGS: Clear to auscultation bilaterally, no wheezes, rales, or rhonchi. No respiratory distress. Non-tender chest wall. HEART: Regular rate and rhythm. No murmur ABDOMEN: Soft, non-tender. Non-distended. EXTREMITIES: Moves all 4 extremities spontaneously. No edema, normal radial and dorsalis pedis pulses bilaterally. No cyanosis. BACK: no cervical, thoracic, lumbar midline tenderness. No saddle anesthesia, normal distal neurovascular exam. Moves all extremities in full range of motion. NEUROLOGICAL: Alert and oriented x3. Normal speech. Cranial nerves II through XII grossly intact. Strength 5/5 in all extremities. PSYCH: Normal affect, normal mood. SKIN: Warm, dry, normal turgor. No rashes or lesions noted. Course - Re-evaluation Re-evalutation: CBC, chemistry, toxicology, magnesium, urinalysis reviewed without concerning abnormality. Vital signs unremarkable. EKG shows borderline T wave inversions anteriorly although this can be a normal variant in a young female (patient has a significant amount of breast tissue). No symptoms or findings reported or seen suggesting cardiogenic etiology. Patient with no reported injury, signs of injury, neurological deficits. Patient reports a headache but she is very well- appearing and alert. I reevaluated patient after she was given IV fluids, Toradol. Patient states she feels great, has no complaints, is requesting discharge. She request a copy of her lithium. She states she does have neurology follow-up, she states she already does not drive and she states she understands seizure precautions which I discussed with her. She states her neurologist reported her seizures were too intermittent for her to require antiepileptic therapy and she states she will discuss this with them. Discussed return precautions. Patient states understanding and agreement. Stable and well-appearing at time of discharge. - Vital Signs Vital signs: Temp Pulse Resp BP Pulse Ox 98.7 F 83 16 115/79 100 02/08/20 03:40 02/08/20 03:40 02/08/20 03:40 02/08/20 03:40 02/08/20 03:40 - Laboratory Result Diagrams: 02/08/20 01:43 02/08/20 01:43 Laboratory results interpreted by me: 02/08/20 02/08/20 02/08/20 01:43 01:43 01:43 WBC 10.7 H MCH 26.9 L RDW 18.1 H ALT 40 H Total Protein 5.9 L Urine Protein 30 H - EKG Interpretation by Me Additional EKG results interpreted by me: EKG shows sinus rhythm at a rate of 83, QTc 437, borderline left axis deviation, borderline T wave inversions in the anterior leads. No ST segment changes in consecutive leads. Discharge - Discharge Clinical Impression: Seizure-like activity Condition: Stable Disposition: HOME, SELF-CARE Additional Instructions: Based on your symptoms and evaluation tonight it is likely that you had a seizure. Your remaining evaluation does not show any concerning findings. Please follow-up closely with your neurologist for recheck and additional management. Return if you worsen including repeat seizures, fever, severe headache, vomiting, or if something is not right. Referrals: RONY CHANG MD [Primary Care Provider] - Follow up as needed
[2020-02-08 02:08] LABS: ABSOLUTE MONOCYTES (AUTO) 0.5 10^3/uL (0.1-1.4); ABSOLUTE NEUT (AUTO) 8.1 10^3/uL (1.7-8.2); BASOPHILS % (AUTO) 0.3 % (0-2); EOSINOPHILS % (AUTO) 0.4 % (0-6); HEMATOCRIT 37.7 % (36.0-47.0); HEMOGLOBIN 12.2 g/dL (12.0-15.5); LYMPHOCYTES % (AUTO) 18.5 % (13-45); MEAN CORPUSCULAR HEMOGLOBIN 26.9 pg (27.0-33.4); MEAN CORPUSCULAR HGB CONC 32.5 g/dL (32.0-36.0); MEAN CORPUSCULAR VOLUME 83 fl (80-97); MONOCYTES % (AUTO) 5.1 % (3-13); PLATELET COUNT 265 10^3/uL (150-450); RED BLOOD COUNT 4.56 10^6/uL (3.72-5.28); RED CELL DISTRIBUTION WIDTH 18.1 % (11.5-14.0); SEGMENTED NEUTROPHILS % (AUTO) 75.7 % (42-78); TOTAL CELLS COUNTED % (AUTO) 100 %; WHITE BLOOD COUNT 10.7 10^3/uL (4.0-10.5)
[2020-02-08 02:19] LABS: ALBUMIN 3.5 g/dL (3.5-5.0); ALKALINE PHOSPHATASE 74 U/L (38-126); ANION GAP 9 (5-19); ASPARTATE AMINO TRANSFERASE 35 U/L (14-36); BILIRUBIN,DIRECT 0.1 mg/dL (0.0-0.4); BILIRUBIN,TOTAL 0.4 mg/dL (0.2-1.3); BLOOD UREA NITROGEN 8 mg/dL (7-20); CALCIUM 9.1 mg/dL (8.4-10.2); CARBON DIOXIDE 23 mmol/L (22-30); CHLORIDE 107 mmol/L (98-107); GLUCOSE 85 mg/dL (75-110); LITHIUM 0.7 mEq/L (0.6-1.2); POTASSIUM 4.2 mmol/L (3.6-5.0); TOTAL PROTEIN 5.9 g/dL (6.3-8.2)
[2020-02-08 02:20] LABS: ALCOHOL < 10 mg/dL (NONE DETECTED)
[2020-02-08 02:54] LABS: APPEARANCE,URINE SLIGHTLY-CLOUDY; BILIRUBIN,URINE NEGATIVE (NEGATIVE); COLOR,URINE YELLOW; GLUCOSE, URINE NEGATIVE (NEGATIVE); KETONES,URINE NEGATIVE (NEGATIVE); LEUKOCYTE ESTERASE,URINE NEGATIVE (NEGATIVE); NITRITE,URINE NEGATIVE (NEGATIVE); PROTEIN,URINE 30 mg/dL (NEGATIVE); URINE SPECIFIC GRAVITY 1.018; UROBILINOGEN,URINE NEGATIVE mg/dL (<2.0)
[2020-02-08 03:01] LABS: URINE AMPHETAMINES SCREEN NEGATIVE; URINE BARBITURATES SCREEN NEGATIVE; URINE COCAINE SCREEN NEGATIVE; URINE MARIJUANA (THC) SCREEN NEGATIVE; URINE METHADONE SCREEN NEGATIVE; URINE PHENCYCLIDINE SCREEN NEGATIVE
[2020-02-08 03:03] LABS: URINE BENZODIAZEPINES SCREEN UNCONFIRMED POSITIVE
[2020-02-08 03:41] VITALS: BP 115/79
--- NOTE | 2020-02-08 08:59 | EKG REPORT ---
SEVERITY:- NORMAL ECG - SINUS RHYTHM NONSPECIFIC T WAVE CHANGES : Confirmed by: Chente Lacy 08-Feb-2020 08:58:46
== END 2020-02-08 03:42 | disposition home or self-care (01) ==
LOC: ER 01:20
DX: R56.9 Unspecified convulsions (principal); I10 Essential (primary) hypertension; Z91.040 Latex allergy status; Z88.2 Allergy status to sulfonamides; Z96.643 Presence of artificial hip joint, bilateral
CPT/HCPCS: 93005; 99284; 96361; 96374; 36415; 82962; 80307 ×2; 80178; 83735; 84703; 85025; 80053; 81001; 93010; J1885; J7030

== ENCOUNTER 2020-02-17 15:13 | Emergency (ER) | payer BC ==
[2020-02-17 16:49] LABS: ALBUMIN 3.5 g/dL (3.5-5.0); ALKALINE PHOSPHATASE 61 U/L (38-126); ANION GAP 5 (5-19); ASPARTATE AMINO TRANSFERASE 35 U/L (14-36); BILIRUBIN,DIRECT 0.1 mg/dL (0.0-0.4); BILIRUBIN,TOTAL 0.3 mg/dL (0.2-1.3); BLOOD UREA NITROGEN 7 mg/dL (7-20); CALCIUM 9.4 mg/dL (8.4-10.2); CARBON DIOXIDE 27 mmol/L (22-30); CHLORIDE 107 mmol/L (98-107); GLUCOSE 98 mg/dL (75-110); POTASSIUM 4.2 mmol/L (3.6-5.0); TOTAL PROTEIN 5.9 g/dL (6.3-8.2)
[2020-02-17 16:50] LABS: ALCOHOL < 10 mg/dL (NONE DETECTED)
[2020-02-17 16:55] LABS: ABSOLUTE BASOPHILS # (AUTO) 0.1 10^3/uL (0.0-0.2); ABSOLUTE EOSINOPHILS # (AUTO) 0.1 10^3/uL (0.0-0.6); ABSOLUTE LYMPHOCYTES (AUTO) 1.4 10^3/uL (0.5-4.7); ABSOLUTE MONOCYTES (AUTO) 0.3 10^3/uL (0.1-1.4); ABSOLUTE NEUT (AUTO) 11.4 10^3/uL (1.7-8.2); BASOPHILS % (AUTO) 0.4 % (0-2); EOSINOPHILS % (AUTO) 0.8 % (0-6); HEMATOCRIT 37.7 % (36.0-47.0); LYMPHOCYTES % (AUTO) 10.7 % (13-45); MEAN CORPUSCULAR HEMOGLOBIN 26.4 pg (27.0-33.4); MEAN CORPUSCULAR HGB CONC 31.7 g/dL (32.0-36.0); MEAN CORPUSCULAR VOLUME 83 fl (80-97); MONOCYTES % (AUTO) 2.5 % (3-13); PLATELET COUNT 253 10^3/uL (150-450); RED BLOOD COUNT 4.52 10^6/uL (3.72-5.28); RED CELL DISTRIBUTION WIDTH 18.3 % (11.5-14.0); SEGMENTED NEUTROPHILS % (AUTO) 85.6 % (42-78); TOTAL CELLS COUNTED % (AUTO) 100 %; WHITE BLOOD COUNT 13.3 10^3/uL (4.0-10.5)
[2020-02-17] MEDS ORDERED: ACETAMINOPHEN 325 MG TABLET PO ONE (17:28)
--- NOTE | 2020-02-17 17:52 | EKG REPORT ---
SEVERITY:- ABNORMAL ECG - SINUS RHYTHM BORDERLINE LEFT AXIS DEVIATION NONSPECIFIC T ABNORMALITIES, ANTERIOR LEADS : Confirmed by: Mingo Padilla MD 17-Feb-2020 17:51:13
[2020-02-17 17:53] LABS: APPEARANCE,URINE CLEAR; BILIRUBIN,URINE NEGATIVE (NEGATIVE); COLOR,URINE YELLOW; GLUCOSE, URINE NEGATIVE (NEGATIVE); KETONES,URINE NEGATIVE (NEGATIVE); LEUKOCYTE ESTERASE,URINE NEGATIVE (NEGATIVE); NITRITE,URINE NEGATIVE (NEGATIVE); PROTEIN,URINE NEGATIVE (NEGATIVE); UROBILINOGEN,URINE NEGATIVE mg/dL (<2.0)
[2020-02-17 18:11] LABS: URINE AMPHETAMINES SCREEN NEGATIVE; URINE BARBITURATES SCREEN NEGATIVE; URINE COCAINE SCREEN NEGATIVE; URINE MARIJUANA (THC) SCREEN NEGATIVE; URINE METHADONE SCREEN NEGATIVE; URINE PHENCYCLIDINE SCREEN NEGATIVE
[2020-02-17 18:12] LABS: URINE BENZODIAZEPINES SCREEN UNCONFIRMED POSITIVE
--- NOTE | 2020-02-17 19:40 | ER Document Report ---
ED Seizure - General Chief Complaint: Seizure Stated Complaint: POSSIBLE SEIZURE Time Seen by Provider: 02/17/20 18:03 Primary Care Provider: RONY CHANG MD [Primary Care Provider] - Follow up as needed - [facility] Notes: Patient is a 29-year-old female presents after a seizure. Patient states she was donating plasma when she had a 5-minute tonic-clonic seizure. This happened prior to arrival. She did not fall or hit her head. She was slightly fatigued after the episode. She did not bite her tongue or lose control of her bladder. Patient states that she has a history of seizures and she sees [facility]. Patient states she has clusters of them. She will have 1 or 2 seizures in 2 weeks but this only happens approximately twice a year. Her neurologist checked an EEG. He does not believe she needs to be on any medication as the seizures are not constant. Patient states she had a seizure about 1 week ago as well. Patient denies any fevers or chills. No urinary symptoms. No nausea or vomiting. No change in her medications. - Related Data Allergies/Adverse Reactions: iodine Allergy (Verified 09/26/19 22:47) latex Allergy (Verified 09/26/19 22:47) promethazine [From Phenergan] Allergy (Verified 09/26/19 22:47) shellfish derived Allergy (Verified 09/26/19 22:47) Sulfa (Sulfonamide Antibiotics) Allergy (Verified 09/26/19 22:47) tramadol Allergy (Verified 09/26/19 22:47) Home Medications: Gibbs, Siraquil, Trazadone, Prednisone Past Medical History - General Information source: Patient - Social History Smoking Status: Never Smoker Chew tobacco use (# tins/day): No Frequency of alcohol use: None Drug Abuse: None Family History: CAD, Hyperlipidemia, Hypertension, Malignancy, Other - Alzheimer's disease. denies: CVA, DM - Past Medical History Cardiac Medical History: Reports: Hx Hypertension Denies: Hx Coronary Artery Disease, Hx DVT, Hx Hypercholesterolemia, Hx Pulmonary Embolism Pulmonary Medical History: Denies: Hx Asthma, Hx COPD Neurological Medical History: Reports: Hx Seizures Endocrine Medical History: Denies: Hx Diabetes Mellitus Type 1, Hx Hyper thyroidism, Hx Hypothyroidism GI Medical History: Denies: Hx Cirrhosis, Hx Crohn's Disease, Hx Hepatitis, Hx Ulcerative Colitis Musculoskeletal Medical History: Reports Hx Arthritis - Systemic lupus erythematosus, Reports Hx Fibromyalgia, Denies Hx Gout, Reports Hx Systemic Lupus Erythematosus Skin Medical History: Denies Hx Eczema, Denies Hx Psoriasis Psychiatric Medical History: Reports: Hx Bipolar Disorder, Hx Depression Infectious Medical History: Denies: Hx Hepatitis Past Surgical History: Reports: Hx Appendectomy, Hx Orthopedic Surgery - bilat hip replacement - Immunizations Hx Diphtheria, Pertussis, Tetanus Vaccination: Yes Review of Systems - Review of Systems Notes: CONSTITUTIONAL: No fever, fatigue or weight loss. SKIN: No rash. HENT: No congestion, ear pain, or sore throat. EYES: No recent vision problems or eye pain. CARDIOVASCULAR: No chest pain or edema. RESPIRATORY: No cough, shortness of breath, congestion, or wheezing. GASTROINTESTINAL: No abdominal pain, nausea, vomiting, bloody stools or diar aung. GENITOURINARY: No dysuria. MUSCULOSKELETAL: No joint pain or swelling. LYMPHATIC: No swollen glands. NEUROLOGIC: Positive for seizures. No headache, focal weakness or sensory changes. HEMATOLOGIC: No unusual bruising or bleeding. PSYCHIATRIC: No depression or anxiety. Physical Exam - Vital signs Vitals: Resp Pulse Ox 23 H 98 02/17/20 15:21 02/17/20 15:21 - General General appearance: Appears well Notes: VITAL SIGNS: Within normal limits. GENERAL: No acute distress, non-toxic appearance. HEAD: Normal with no signs of head trauma. EYES: PERRLA, EOMI, conjunctiva normal, no discharge. EARS: Hearing grossly intact. NOSE: Normal. NECK: Normal range of motion, no tenderness, supple, no lymphadenopathy, No adenopathy, no JVD. CHEST: Clear breath sounds bilaterally. No wheezes, rales, or rhonchi. CARDIAC: Regular rate and rhythm. S1 and S2, without murmurs, gallops, or rubs. VASCULAR: No Edema. Peripheral pulses normal and equal in all extremities. ABDOMEN: Normal and soft with no tenderness, no masses or pulsatile masses. GENITOURINARY: Normal, No tenderness MUSCULOSKELETAL: Good range of motion of all major joints. Extremities without clubbing, cyanosis or edema. NEUROLOGICAL: Alert and oriented x 3. No focal sensory or strength deficits. Speech normal. Follows commands appropriately. PSYCHIATRIC: Normal Affect, judgement and mood. SKIN: Normal appearance with no rashes or lesions. Course - Re-evaluation Re-evalutation: 02/17/20 21:58 Patient appears well on exam. She is alert and oriented and in no acute distres s. Patient states her neurologist does not want her on any seizure medications as her seizures are so infrequent. She does not drive. I attempted to call [facility] but they are not on-call. Patient states that she will call them first thing tomorrow morning. She is asymptomatic now. Patient states she would like to be discharged. I believe this is reasonable. I reviewed her work-up with her. She will follow-up and return for any return of symptoms. - Vital Signs Vital signs: Temp Pulse Resp BP Pulse Ox 98.0 F 18 116/70 96 02/17/20 15:52 02/17/20 19:01 02/17/20 19:01 02/17/20 19:01 - Laboratory Result Diagrams: 02/17/20 15:55 02/17/20 15:55 Laboratory results interpreted by me: 02/17/20 02/17/20 15:55 15:55 WBC 13.3 H MCH 26.4 L MCHC 31.7 L RDW 18.3 H Lymph % (Auto) 10.7 L [place] % (Auto) 2.5 L Absolute Neuts (auto) 11.4 H Seg Neutrophils % 85.6 H ALT 44 H Total Protein 5.9 L - EKG Interpretation by Ut EKG shows normal: Sinus rhythm Rate: Normal Rhythm: NSR When compared to previous EKG there are: Previous EKG unavailable Additional EKG results interpreted by me: 02/17/20 19:39 Sinus rhythm at a rate of 85. QTc 447. No acute ST changes. No previous EKG available for comparison. Discharge - Discharge Clinical Impression: Seizure Condition: Stable Disposition: HOME, SELF-CARE Instructions: Seizure, Known Epileptic ([facility]) Additional Instructions: Your work-up today is reassuring. Please follow-up with your neurologist. Please call them first thing tomorrow morning. Please return to the ER for any return of symptoms. Referrals: RONY CHANG MD [Primary Care Provider] - Follow up in 3-5 days
[2020-02-17 20:02] VITALS: BP 107/64
== END 2020-02-17 20:03 | disposition home or self-care (01) ==
LOC: ER 15:13
DX: R56.9 Unspecified convulsions (principal); R53.83 Other fatigue; I10 Essential (primary) hypertension; F31.9 Bipolar disorder, unspecified; M32.9 Systemic lupus erythematosus, unspecified; Z79.52 Long term (current) use of systemic steroids; Z79.899 Other long term (current) drug therapy; Z91.040 Latex allergy status; Z88.8 Allergy status to other drugs, medicaments and biological substances; Z91.013 Allergy to seafood; Z88.2 Allergy status to sulfonamides; Z88.6 Allergy status to analgesic agent
CPT/HCPCS: 36415; 80053; 80307; 81001; 83735; 84703; 85025; 93005; 93010; 99284

== ENCOUNTER 2020-03-28 00:06 | Emergency (ER) | payer BC ==
--- NOTE | 2020-03-28 07:56 | ER Document Report ---
ED General - General Chief Complaint: Weakness Stated Complaint: LUPUS ISSUES Time Seen by Provider: 03/28/20 07:36 TRAVEL OUTSIDE OF THE [place] IN LAST 30 DAYS: No - HPI Notes: Chief complaint: Joint stiffness and pain History of present illness: This is a 29-year-old female with a past history of SLE currently not on any treatment and currently without a primary care physicia n or watch dial maker who comes in requesting treatment for joint stiffness and pain. Patient says she was diagnosed as a teenager with SLE and previously had seen Dr. Jamaal Waldrop a watch dial maker in [facility]. In the past she was treated with Plaquenil and prednisone. She has not been on any medication now for several years. Says that she just moved to this area and does not have a primary care doctor. She has a history of bipolar disorder and is on multiple medications for this condition. She denies fever, chills or vomiting. Says she has been prone to recurrent UTIs. Currently not having any UTI symptoms. - Related Data Allergies/Adverse Reactions: iodine Allergy (Verified 09/26/19 22:47) latex Allergy (Verified 09/26/19 22:47) promethazine [From Phenergan] Allergy (Verified 09/26/19 22:47) shellfish derived Allergy (Verified 09/26/19 22:47) Sulfa (Sulfonamide Antibiotics) Allergy (Verified 09/26/19 22:47) tramadol Allergy (Verified 09/26/19 22:47) Home Medications: celebrex, predinisone, hydrogychlorine, lithium, cymbalta, seroquel, trazadone, metoprolol, Past Medical History - General Information source: Patient - Social History Smoking Status: Never Smoker Frequency of alcohol use: None Lives with: Alone Family History: CAD, Hyperlipidemia, Hypertension, Malignancy, Other - Alzheimer's disease. denies: CVA, DM - Past Medical History Cardiac Medical History: Reports: Hx Hypertension Denies: Hx Coronary Artery Disease, Hx DVT, Hx Hypercholesterolemia, Hx Pulmonary Embolism Pulmonary Medical History: Denies: Hx Asthma, Hx COPD Neurological Medical History: Reports: Hx Seizures Endocrine Medical History: Denies: Hx Diabetes Mellitus Type 1, Hx Hyperthyroidism, Hx Hypothyroidism GI Medical History: Denies: Hx Cirrhosis, Hx Crohn's Disease, Hx Hepatitis, Hx Ulcerative Colitis Musculoskeletal Medical History: Reports Hx Arthritis - Systemic lupus erythematosus, Reports Hx Fibromyalgia, Denies Hx Gout, Reports Hx Systemic Lupus Erythematosus Skin Medical History: Denies Hx Eczema, Denies Hx Psoriasis Psychiatric Medical History: Reports: Hx Bipolar Disorder, Hx Depression Infectious Medical History: Denies: Hx Hepatitis Past Surgical History: Reports: Hx Appendectomy, Hx Orthopedic Surgery - bilat hip replacement - Immunizations Hx Diphtheria, Pertussis, Tetanus Vaccination: Yes Review of Systems - Review of Systems Notes: Constitutional: Negative for fever. HENT: Negative for sore throat. Eyes: Negative for visual changes. Cardiovascular: Negative for chest pain. Respiratory: Negative for shortness of breath. Gastrointestinal: Negative for abdominal pain, vomiting or diarrhea. Genitourinary: Negative for dysuria. Musculoskeletal: As per HPI. Skin: Negative for rash. Neurological: Negative for headaches, weakness or numbness. 10 point ROS negative except as marked above and in HPI. Physical Exam - Vital signs Vitals: Temp Pulse Resp BP Pulse Ox 98.1 F 94 16 139/78 H 98 03/28/20 00:14 03/28/20 00:14 03/28/20 00:14 03/28/20 00:14 03/28/20 00:14 - Notes Notes: GENERAL: Mildly obese female of approximately stated age appearing in no acute distress. SKIN: Good turgor no rashes. HEAD: Normocephalic atraumatic. EYES: PERRLA. EOMI. Conjunctivae and sclerae clear. EARS: CANALS AND TMS CLEAR. NOSE: CLEAR. MOUTH: Moist mucosa. Good dentition. No stridor or edema. No drooling. NECK: Supple. No masses or thyromegaly. No adenopathy. Carotids 2+ without bruits. No JVD. BACK: Symmetrical without tenderness. CHEST: Respirations unlabored. Breath sounds clear and symmetrical. HEART: Regular rhythm. No murmur gallop or rub. ABDOMEN: Soft nontender without masses, organomegaly or rebound. Bowel sounds normally active. No bruits. GENITALIA: Deferred. EXTREMITIES: Diffuse joint tenderness with no objective redness or swelling. No edema. No calf tenderness. Cap refill less than 1.5 seconds. Dorsalis pedis and posterior tibial pulses 3+ and symmetrical. NEUROLOGICAL: GCS 15. Alert and oriented x3. Normal gait. Fluent speech. Cranial nerves II through XII intact. Sensorimotor and cerebellar normal. Normal tone. PSYCHIATRIC: Flat affect. Course - Re-evaluation Re-evalutation: 03/28/20 09:14 29-year-old female reporting longstanding history of lupus currently not on any medications for this. Currently does not have a watch dial maker or primary care doctor. She is on multiple psychotropic medications for bipolar disorder. She is coming in today principally complaining of joint pain and says she feels she is having a lupus flare. Her exam does not show any acute redness or swelling of the joints although she does have restricted motion of multiple joints secondary to pain. Her sed rate was in the low 30s. CBC is remarkable for mild anemia. Her comprehensive metabolic profile is normal. Her urinalysis and urine drug screen are unremarkable. I offered the patient an injection of Toradol. She refuses stating that she already had some oral Toradol at home. She specifically requested Percocet. I told her that I will not be prescribing any protracted course of this medication for her. I am giving her 2 tablets here and I will write her 12 tablets or prescription. I am also going to put her on a burst of prednisone. I am referring her to a primary care physician and suggested they get her back to a watch dial maker for further management. I emphasized to her that the emergency department would not be an appropriate place for her to obtain additional narcotic medication Findings, clinical impression and plan of treatment have been discussed with patient/family. Understanding of current findings and recommendations has been acknowledged by them and there is agreement regarding disposition and follow- up.. - Vital Signs Vital signs: Temp Pulse Resp BP Pulse Ox 97.9 F 90 18 127/84 H 99 03/28/20 07:44 03/28/20 07:44 03/28/20 07:44 03/28/20 07:44 03/28/20 07:44 - Laboratory Results Result Diagrams: 03/28/20 08:10 03/28/20 08:10 Laboratory Results Interpreted: 03/28/20 03/28/20 03/28/20 07:48 08:10 08:10 WBC 10.7 H Hgb 11.1 L Hct 33.4 L RDW 16.9 H ESR 34 H ALT 37 H Urine Protein 30 H Critical Laboratory Results Reviewed: Yes Attending or Supervising Physician who Reviewed Labs: CRUZITO CROWDER - Radiology Results Critical Radiology Results Reviewed: No Critical Results Discharge - Discharge Clinical Impression: Systemic lupus erythematosus, Bipolar disorder, Fibromyalgia Condition: Stable Disposition: HOME, SELF-CARE Additional Instructions: Schedule appointment with referral primary care physician and discuss obtaining a referral from them back to a watch dial maker. Take prescribed medication as directed. I am providing you a work note for the next 3 days. You may return to the emergency department as necessary for new or worsening symptoms. Prescriptions: Prednisone [Deltasone 20 mg Tablet] 2 tab PO DAILY 5 Days tablet Oxycodone HCl/Acetaminophen [Percocet 5-325 mg Tablet] 1 tab PO Q6H PRN #12 tablet PRN Reason:
[2020-03-28 08:31] LABS: ABSOLUTE BASOPHILS # (AUTO) 0.1 10^3/uL (0.0-0.2); ABSOLUTE EOSINOPHILS # (AUTO) 0.2 10^3/uL (0.0-0.6); ABSOLUTE LYMPHOCYTES (AUTO) 3.2 10^3/uL (0.5-4.7); ABSOLUTE MONOCYTES (AUTO) 0.6 10^3/uL (0.1-1.4); ABSOLUTE NEUT (AUTO) 6.7 10^3/uL (1.7-8.2); BASOPHILS % (AUTO) 0.5 % (0-2); EOSINOPHILS % (AUTO) 2.2 % (0-6); HEMATOCRIT 33.4 % (36.0-47.0); HEMOGLOBIN 11.1 g/dL (12.0-15.5); LYMPHOCYTES % (AUTO) 29.9 % (13-45); MEAN CORPUSCULAR HEMOGLOBIN 27.5 pg (27.0-33.4); MEAN CORPUSCULAR HGB CONC 33.2 g/dL (32.0-36.0); MEAN CORPUSCULAR VOLUME 83 fl (80-97); MONOCYTES % (AUTO) 5.2 % (3-13); PLATELET COUNT 256 10^3/uL (150-450); RED BLOOD COUNT 4.02 10^6/uL (3.72-5.28); RED CELL DISTRIBUTION WIDTH 16.9 % (11.5-14.0); SEGMENTED NEUTROPHILS % (AUTO) 62.2 % (42-78); TOTAL CELLS COUNTED % (AUTO) 100 %; WHITE BLOOD COUNT 10.7 10^3/uL (4.0-10.5)
[2020-03-28 08:33] LABS: APPEARANCE,URINE SLIGHTLY-CLOUDY; BILIRUBIN,URINE NEGATIVE (NEGATIVE); COLOR,URINE YELLOW; GLUCOSE, URINE NEGATIVE (NEGATIVE); KETONES,URINE NEGATIVE (NEGATIVE); PROTEIN,URINE 30 mg/dL (NEGATIVE); URINE SPECIFIC GRAVITY 1.017; UROBILINOGEN,URINE NEGATIVE mg/dL (<2.0)
[2020-03-28 08:50] LABS: URINE AMPHETAMINES SCREEN NEGATIVE; URINE BARBITURATES SCREEN NEGATIVE; URINE BENZODIAZEPINES SCREEN NEGATIVE; URINE COCAINE SCREEN NEGATIVE; URINE MARIJUANA (THC) SCREEN NEGATIVE; URINE METHADONE SCREEN NEGATIVE; URINE PHENCYCLIDINE SCREEN NEGATIVE
[2020-03-28 08:52] LABS: ALBUMIN 3.7 g/dL (3.5-5.0); ALKALINE PHOSPHATASE 88 U/L (38-126); ANION GAP 5 (5-19); ASPARTATE AMINO TRANSFERASE 29 U/L (14-36); BILIRUBIN,DIRECT 0.2 mg/dL (0.0-0.4); BILIRUBIN,TOTAL 0.5 mg/dL (0.2-1.3); BLOOD UREA NITROGEN 12 mg/dL (7-20); CALCIUM 9.3 mg/dL (8.4-10.2); CARBON DIOXIDE 29 mmol/L (22-30); CHLORIDE 104 mmol/L (98-107); GLUCOSE 89 mg/dL (75-110); POTASSIUM 3.8 mmol/L (3.6-5.0); TOTAL PROTEIN 6.9 g/dL (6.3-8.2)
[2020-03-28 09:08] LABS: ERYTHROCYTE SEDIMENTATION RATE 34 mm/hr (0-20)
[2020-03-28] MEDS ORDERED: KETOROLAC TROMETHAMINE 60 MG/2 ML SDV IM ONE (09:09)
[2020-03-28] MEDS ORDERED: OXYCODONE-ACETAMINOPHEN 5-325 MG TABLET PO ONE (09:13)
[2020-03-28 10:01] VITALS: BP 133/84
== END 2020-03-28 10:01 | disposition home or self-care (01) ==
LOC: ER 00:06
DX: M32.9 Systemic lupus erythematosus, unspecified (principal); F31.9 Bipolar disorder, unspecified; M79.7 Fibromyalgia; R53.1 Weakness; E66.01 Morbid (severe) obesity due to excess calories; I10 Essential (primary) hypertension; Z87.440 Personal history of urinary (tract) infections
CPT/HCPCS: 36415; 80053; 80307; 81001; 81025; 85025; 85652; 99284

== ENCOUNTER 2020-04-10 01:37 | Emergency (ER) | payer BC ==
--- NOTE | 2020-04-10 02:44 | RADIOLOGY REPORT (SQ) ---
CLINICAL HISTORY: shortness of breath; chest pain with deep breaths COMPARISON: None. 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 Lungs are clear without consolidation, atelectasis, mass or edema. There is no pleural effusion. There is no pneumothorax. There are no acute osseous findings. IMPRESSION: Clear lungs.
[2020-04-10 05:56] LABS: ABSOLUTE BASOPHILS # (AUTO) 0.1 10^3/uL (0.0-0.2); ABSOLUTE EOSINOPHILS # (AUTO) 0.2 10^3/uL (0.0-0.6); ABSOLUTE LYMPHOCYTES (AUTO) 3.4 10^3/uL (0.5-4.7); ABSOLUTE MONOCYTES (AUTO) 0.5 10^3/uL (0.1-1.4); ABSOLUTE NEUT (AUTO) 8.4 10^3/uL (1.7-8.2); BASOPHILS % (AUTO) 0.5 % (0-2); EOSINOPHILS % (AUTO) 1.5 % (0-6); HEMATOCRIT 36.2 % (36.0-47.0); MEAN CORPUSCULAR HEMOGLOBIN 27.4 pg (27.0-33.4); MEAN CORPUSCULAR HGB CONC 33.1 g/dL (32.0-36.0); MEAN CORPUSCULAR VOLUME 83 fl (80-97); MONOCYTES % (AUTO) 4.1 % (3-13); PLATELET COUNT 314 10^3/uL (150-450); RED BLOOD COUNT 4.39 10^6/uL (3.72-5.28); RED CELL DISTRIBUTION WIDTH 16.4 % (11.5-14.0); SEGMENTED NEUTROPHILS % (AUTO) 66.9 % (42-78); TOTAL CELLS COUNTED % (AUTO) 100 %; WHITE BLOOD COUNT 12.5 10^3/uL (4.0-10.5)
[2020-04-10 06:08] LABS: ANION GAP 6 (5-19); BLOOD UREA NITROGEN 13 mg/dL (7-20); CALCIUM 9.8 mg/dL (8.4-10.2); CARBON DIOXIDE 27 mmol/L (22-30); CHLORIDE 107 mmol/L (98-107); GLUCOSE 93 mg/dL (75-110); POTASSIUM 4.3 mmol/L (3.6-5.0)
[2020-04-10] MEDS ORDERED: OXYCODONE-ACETAMINOPHEN 5-325 MG TABLET PO ONE (06:33)
[2020-04-10] MEDS ORDERED: PREDNISONE 20 MG TABLET PO ONE (06:34)
--- NOTE | 2020-04-10 06:54 | ER Document Report ---
Entered by LINDSEY FOUNTAIN SCRIBE 04/10/20 0624 Acting as scribe for:FUNMILAYO OSBORNE MD ED General - General Chief Complaint: Shortness Of Breath Stated Complaint: SHORTNESS OF BREATH Time Seen by Provider: 04/10/20 06:12 Information source: Patient Notes: This 29-year-old female patient with SLE presents to the emergency department today with complaints of a "lupus flare" for the last 2-1/2 to 3 weeks with chest pain which began yesterday. Patient reports that her "Facebook forum" told her that she should be worried about "costochondritis or pleurisy". She reports that every time she takes a breath it feels like someone is "stepping on her chest". She denies fevers. Patient was seen here on 03/28/2020 complaint of lupus flare, she had a sed rate of 34 at that time, she was put on prednisone 40 mg a day for 5 days, she states she stopped her 15 mg prednisone daily dosing while she was at the 40 mg range, and then tapered herself back to 15 mg daily. She tells me that her residential electrician advised her against getting flu shots and against getting the Covid vaccine. She has not had any symptoms that would suggest Covid exposure. TRAVEL OUTSIDE OF THE [place] IN LAST 30 DAYS: No - Related Data Allergies/Adverse Reactions: iodine Allergy (Verified 04/10/20 02:11) latex Allergy (Verified 04/10/20 02:11) promethazine [From Phenergan] Allergy (Verified 04/10/20 02:11) shellfish derived Allergy (Verified 04/10/20 02:11) Sulfa (Sulfonamide Antibiotics) Allergy (Verified 04/10/20 02:11) tramadol Allergy (Verified 04/10/20 02:11) Home Medications: does not have current list Past Medical History - General Information source: Patient - Social History Smoking Status: Former Smoker Frequency of alcohol use: Rare Drug Abuse: None Lives with: Family Family History: CAD, Hyperlipidemia, Hypertension, Malignancy, Other - Alzheimer's disease Patient has homicidal ideation: No - Past Medical History Cardiac Medical History: Reports: Hx Hypertension Neurological Medical History: Reports: Hx Seizures Musculoskeletal Medical History: Reports Hx Arthritis - Systemic lupus erythematosus, Reports Hx Fibromyalgia, Reports Hx Systemic Lupus Erythematosus Psychiatric Medical History: Reports: Hx Bipolar Disorder, Hx Depression Past Surgical History: Reports: Hx Appendectomy, Hx Orthopedic Surgery - bilat h ip replacement - Immunizations Hx Diphtheria, Pertussis, Tetanus Vaccination: Yes Review of Systems - Review of Systems Constitutional: denies: Fever EENT: No symptoms reported Cardiovascular: No symptoms reported Respiratory: See HPI, Hurts to breathe, Other - Reproducible chest wall pain Gastrointestinal: No symptoms reported Genitourinary: No symptoms reported Female Genitourinary: No symptoms reported Musculoskeletal: No symptoms reported Skin: No symptoms reported Hematologic/Lymphatic: No symptoms reported Neurological/Psychological: No symptoms reported -: Yes All other systems reviewed and negative Physical Exam - Vital signs Vitals: Temp Pulse Resp BP Pulse Ox 98.6 F 93 17 141/81 H 97 04/10/20 01:50 04/10/20 01:50 04/10/20 01:50 04/10/20 01:50 04/10/20 01:50 - Notes Notes: Physical Exam: General: Alert, appears well. HEENT: Normocephalic. Atraumatic. PERRL. Extraocular movements intact. Oropharynx clear. Neck: Supple. Non-tender. Respiratory: No respiratory distress. Clear and equal breath sounds bilaterally. Exquisite anterior chest wall tenderness to palpation. Complains of pain with deep breathing. Cardiovascular: Regular rate and rhythm. Abdominal: Obese. Non-tender. No distension. Normal Bowel Sounds. Back: No gross abnormalities. Extremities: Moves all four extremities. Upper extremities: Normal inspection. Normal ROM. Lower extremities: Normal inspection. No edema. Normal ROM. Neurological: Normal cognition. AAOx4. Normal speech. Psychological: Normal affect. Normal Mood. Skin: Warm. Dry. Normal color. Course - Re-evaluation Re-evalutation: 04/10/20 09:00 Patient's chest x-ray is clear. The sed rate today is 29, 2 weeks ago it was 34. CRP is elevated. D-dimer is slightly elevated. All of this is consistent with a mild flare of her lupus. She will be Covid tested as a precaution. She will be discharged home with a dispense pack of pain medication, and a prescription increase her prednisone dosing for the next 5 days. 04/10/20 09:01 The patient was evaluated during the global COVID-19 pandemic and that diagnosis was suspected/considered upon their initial presentation. Their evaluation, treatment and testing was consistent with current guidelines for patients who present with complaints or symptoms that may be related to COVID-19. 04/10/20 09:03 04/10/20 09:10 Of note, the patient has a dog with her with a service dog vest on. When I went back to check on the patient, the dog got up, came over to me and began sniffing my hand. - Vital Signs Vital signs: Temp Pulse Resp BP Pulse Ox 97.6 F 85 16 138/75 H 100 04/10/20 07:55 04/10/20 07:55 04/10/20 07:55 04/10/20 07:55 04/10/20 07:55 - Laboratory Results Result Diagrams: 04/10/20 05:36 04/10/20 05:36 Laboratory Results Interpreted: 04/10/20 04/10/20 04/10/20 05:36 05:36 05:36 WBC 12.5 H RDW 16.4 H Absolute Neuts (auto) 8.4 H ESR 29 H D-Dimer C-Reactive Protein 37.0 H 04/10/20 05:36 WBC RDW Absolute Neuts (auto) ESR D-Dimer 0.84 H C-Reactive Protein Critical Laboratory Results Reviewed: No Critical Results - Radiology Results Radiology Results Interpreted: 04/10/20 08:38 Chest x-ray does not show acute cardiopulmonary abnormalities. Critical Radiology Results Reviewed: No Critical Results - EKG Interpretation by Me EKG shows normal: Sinus rhythm, [place], Intervals, QRS Complexes, ST-T Waves Rate: Normal - 86 Rhythm: NSR Discharge - Discharge Clinical Impression: Anterior chest wall pain Systemic lupus erythematosus Qualifiers: Systemic lupus erythematosus type: unspecified Systemic lupus erythematosus organ involvement: unspecified Qualified Code(s): M32.9 - Systemic lupus erythematosus, unspecified Condition: Stable Disposition: HOME, SELF-CARE Instructions: COVID-19 Guidance for Persons Under Investigation Additional Instructions: Chest Wall Pain Your chest pain has been diagnosed as coming from the chest wall. This is often caused by straining the muscles or joints in the chest during physical activity, direct trauma, coughing, or vigorous vomiting. Persons with arthritis are especially prone to this type of pain, due to inflammation of the cartilage joints near the breast bone. Occasionally, no cause can be found. Rest from strenuous physical activity. This kind of chest pain is usually made worse by movement of the chest. Depending on the symptoms, we may prescribe medicine for pain, muscle relaxation, and antiinflammatory effects. If the pain is new, and seems to be due to muscle strain, cold packs can help. Otherwise, apply gentle warmth to the painful area for 15 minutes every hour or two. You should contact the doctor immediately if things change. Further evaluation is needed if you develop a fever or cough, if the nature of the pain changes, or if you become short of breath. Your history, physical exam, and lab work suggest that you may be experiencing a mild flare of your lupus activity. Many things could trigger this, including viral infections. Due to being in the Covid pandemic, we will test you for Covid today. You were given 60 mg of prednisone today in the emergency room. Start the prednisone prescription tomorrow where you will be taking 20 mg twice daily for 5 days. Stop taking your regularly scheduled 15 mg prednisone daily until you have finished the 5-day course of the prednisone 40 mg daily. Drink plenty of fluids and get plenty of rest. Self isolate until you get results of the Covid test. If all of your chest wall pain is due to lupus and costochondritis, then the prednisone should adequately suppress your discomfort. If you continue to have the chest wall discomfort, especially when palpating y our anterior chest wall, then taking a nonsteroidal anti-inflammatory drug such as ibuprofen or Aleve should be beneficial. Follow-up with your primary care provider and your residential electrician if not im proving. RETURN TO THE EMERGENCY ROOM IF ANY NEW OR WORSENING SYMPTOMS. Prescriptions: Prednisone [Deltasone 20 mg Tablet] 20 mg PO BID #10 tablet Forms: Return to Work I personally performed the services described in the documentation, reviewed and edited the documentation which was dictated to the scribe in my presence, and it accurately records my words and actions.
[2020-04-10 07:56] VITALS: BP 138/75
[2020-04-10] MEDS ORDERED: HYDROCODONE/ACETAMINOPHEN 5-325 MG (6 TAB/ER DISP) PO PRN (08:58)
--- NOTE | 2020-04-10 11:35 | EKG REPORT ---
SEVERITY:- NORMAL ECG - SINUS RHYTHM : Confirmed by: Jolly Ortiz MD 10-Apr-2020 11:35:24
== END 2020-04-10 09:26 | disposition home or self-care (01) ==
LOC: ER 01:37
DX: R07.89 Other chest pain (principal); R06.02 Shortness of breath; R07.1 Chest pain on breathing; R79.82 Elevated C-reactive protein (CRP); R79.89 Other specified abnormal findings of blood chemistry; M32.9 Systemic lupus erythematosus, unspecified; I10 Essential (primary) hypertension; Z87.891 Personal history of nicotine dependence; Z91.040 Latex allergy status; Z88.8 Allergy status to other drugs, medicaments and biological substances; Z91.013 Allergy to seafood; Z88.2 Allergy status to sulfonamides; Z88.6 Allergy status to analgesic agent; Z20.822 Contact with and (suspected) exposure to COVID-19
CPT/HCPCS: 93005; 99285; 36415; 85025; 85652; 81025; 86140; 80048; 84484; 85379; 71046; 93010; U0003; J7512; C9803; 87635

== ENCOUNTER 2020-04-12 21:00 | Emergency (ER) | payer BC ==
[2020-04-12] MEDS ORDERED: KETOROLAC TROMETHAMINE INJ/PF 30 MG/1 ML SDV IV ONE (21:30)
[2020-04-12] MEDS ORDERED: NORMAL SALINE 1000 ML 1,000 ML IV ONE (21:30)
[2020-04-12] MEDS ORDERED: DIPHENHYDRAMINE HCL 50 MG/ML VIAL IV ONE (21:30)
[2020-04-12] MEDS ORDERED: METHYLPREDNISOLONE INJ 125 MG/2 ML SDV IV ONE (21:30)
--- NOTE | 2020-04-12 21:33 | ER Document Report ---
ED Cardiac - General Stated Complaint: SHORTNESS OF BREATH,CHEST WALL PAIN,ABDOMINAL PAIN Time Seen by Provider: 04/12/20 21:21 Mode of Arrival: Ambulatory Information source: Patient TRAVEL OUTSIDE OF THE [place] IN LAST 30 DAYS: No - HPI Patient complains to provider of: Chest pain Notes: Patient here with a history of systemic lupus erythematous and complaints of some chest pain. The patient was seen in the emergency department yesterday for similar complaints. She had a chest x-ray, EKG and blood work which were all unremarkable. She was discharged home with a diagnosis of costochondritis and given steroids. She states that she continues to have pain and now the pain is lower in her ribs. Pain is constant, moderate to severe, worse when she takes a deep breath or moves. She denies any nausea, vomiting, diarrhea. No fever or cough. She is had a rapid as well as PCR Covid swab which were both negative. She denies any dysuria or hematuria. No rash. No injury. No numbness, tingling, weakness. No blurred or lost vision. No severe headache. No other complaints. - Related Data Allergies/Adverse Reactions: iodine Allergy (Verified 04/12/20 21:33) latex Allergy (Verified 04/12/20 21:33) promethazine [From Phenergan] Allergy (Verified 04/12/20 21:33) shellfish derived Allergy (Verified 04/12/20 21:33) Sulfa (Sulfonamide Antibiotics) Allergy (Verified 04/12/20 21:33) tramadol Allergy (Verified 04/12/20 21:33) Past Medical History - Social History Smoking Status: Never Smoker Frequency of alcohol use: None Drug Abuse: None Family History: CAD, Hyperlipidemia, Hypertension, Malignancy, Other - Alzheimer's disease - Past Medical History Cardiac Medical History: Reports: Hx Hypertension Denies: Hx Coronary Artery Disease, Hx DVT, Hx Hypercholesterolemia, Hx Pulmonary Embolism Pulmonary Medical History: Denies: Hx Asthma, Hx COPD Neurological Medical History: Reports: Hx Seizures Endocrine Medical History: Denies: Hx Diabetes Mellitus Type 1, Hx Hyperthyroidism, Hx Hypothyroidism GI Medical History: Denies: Hx Cirrhosis, Hx Crohn's Disease, Hx Hepatitis, Hx Ulcerative Colitis Musculoskeletal Medical History: Reports Hx Arthritis - Systemic lupus erythe matosus, Reports Hx Fibromyalgia, Denies Hx Gout, Reports Hx Systemic Lupus Erythematosus Skin Medical History: Denies Hx Eczema, Denies Hx Psoriasis Psychiatric Medical History: Reports: Hx Bipolar Disorder, Hx Depression Infectious Medical History: Denies: Hx Hepatitis Past Surgical History: Reports: Hx Appendectomy, Hx Orthopedic Surgery - bilat hip replacement - Immunizations Hx Diphtheria, Pertussis, Tetanus Vaccination: Yes Review of Systems - Review of Systems -: Yes All other systems reviewed and negative Physical Exam - Vital signs Vitals: Temp Pulse Resp BP Pulse Ox 98.5 F 83 20 134/83 H 99 04/12/20 21:30 04/12/20 21:30 04/12/20 21:30 04/12/20 21:30 04/12/20 21:30 - Notes Notes: GENERAL: alert, cooperative, nontoxic, no distress. HEAD: normocephalic, atraumatic EYES: conjunctiva pink without discharge, no external redness or swelling. EARS: no external swelling, no external redness NOSE: atraumatic, no external swelling MOUTH/THROAT: mucous membranes moist and pink, posterior pharynx without erythema, swelling, exudate. No trismus or drooling. NECK: soft, supple, full range of motion, no meningismus. CHEST: no distress, lungs clear and equal throughout. No wheezing, rales, rhonchi. Tenderness to palpation to the anterior chest wall as well as the bilateral lower ribs. CARDIAC: regular rate and rhythm, no murmur ABDOMEN: Soft, nontender to palpation. Bowel sounds present. BACK: full range of motion EXTREMITIES: full range of motion of all extremities. No redness, no swelling. NEURO: alert and oriented x 3, no focal deficits, full range of motion of all extremities. PYSCH: appropriate mood, affect. Patient is cooperative. SKIN: pink, warm, dry, no rash. Course - Re-evaluation Re-evalutation: 04/12/20 21:52 Discussion with the patient regarding her allergies. The patient told the compliance field technician that she swells up when she has had contrast/iodine. There was concern for potential anaphylaxis, therefore a VQ scan was ordered. I went to talk to the patient regarding this and she states that she is never had trouble breathing, lip or tongue swelling that her joints swell up and it makes her lupus flareup when she has had iodine in the past but she has done fine when she is been premedicated. She states that she is comfortable receiving the contrast for the CTA. Patient will be premedicated. 04/13/20 01:16 Patient is nontoxic-appearing with stable vitals. I have gone over the results with the patient. Questions been answered. Will discharge home. Patient here with complaints of some chest pain that seems to be worse with deep breaths and with palpation. She states that occasionally she is comfortable until she takes a deep breath, coughs or sneezes and then she has 30 minutes of pain. Patient was seen here 2 days ago with a negative work-up aside from a positive D-dimer. She does have a history of lupus. She was discharged home with Toradol and prednisone. She came back today because she states that the pain has not gotten any better. She is not hypoxic or tachypneic. She is afebrile. Her Covid swab was negative. White blood cell count is normal at 10. Chemistries are unremarkable aside from a minimally elevated glucose of 115 and a mildly elevated AST and ALT of 45 and 53 respectively. Troponin is negative. Due to the fact that the patient has lupus and had a positive D-dimer on her previous visit, I did order a CTA of the chest which shows no PE or other acute abnormality. EKG today shows some inverted T waves which is unchanged from previous EKG. Patient's symptoms are very atypical for ACS, EKG shows no STEMI and troponin is negative. Patient's symptoms are likely secondary to costochondritis. Patient is mildly upset that I will not be prescribing her any narcotics for this pain. I explained that we typically do not prescribe narcotics for this type of pain from the emergency department that she needs to get established with primary care or follow-up with her primary care doctor if she feels that she needs stronger pain medication than she was given. This point the patient will be discharged home with instructions to follow-up with her primary care doctor at the next available appointment. Follow-up sooner for any worsening pain, high fever, persistent vomiting, or for any further c oncerns. The patient's emergency department workup and current diagnosis were explained to the patient and or family. Follow-up instructions were provided. Medications if prescribed were discussed. Instructions for when to return to the emergency department including specific worrisome symptoms were discussed with the patient and/or family. - Vital Signs Vital signs: Temp Pulse Resp BP Pulse Ox 98.5 F 83 20 134/83 H 99 04/12/20 21:30 04/12/20 21:30 04/12/20 21:30 04/12/20 21:30 04/12/20 21:30 - Laboratory Results Result Diagrams: 04/12/20 22:13 04/12/20 22:13 Laboratory Results Interpreted: 04/12/20 04/12/20 22:13 22:13 RDW 16.2 H Seg Neutrophils % 79.3 H Glucose 115 H AST 45 H ALT 53 H Critical Laboratory Results Reviewed: No Critical Results - Radiology Results Critical Radiology Results Reviewed: No Critical Results - EKG Interpretation by [place] EKG shows normal: Sinus rhythm Rate: Normal Additional EKG results interpreted by me: 04/12/20 23:51 Normal sinus rhythm, ventricular rate of 80. WV interval 136, QRS duration 86, QT interval 368. No ST elevation or depression. No STEMI. Inverted T waves in V1 through V6 unchanged from previous EKG. Discharge - Discharge Clinical Impression: Anterior chest wall pain, Costochondritis, acute Condition: Stable Disposition: HOME, SELF-CARE Instructions: Chest Wall Pain ([facility]) Additional Instructions: Continue taking your Toradol and steroids. Drink plenty fluids. Follow-up with your primary care doctor at the next available appointment. Follow-up sooner for any worsening pain, high fever, persistent vomiting, or for any further conc erns. Referrals: [facility] [Provider Group] - Follow up as needed
[2020-04-12 22:40] LABS: ABSOLUTE LYMPHOCYTES (AUTO) 1.7 10^3/uL (0.5-4.7); ABSOLUTE MONOCYTES (AUTO) 0.4 10^3/uL (0.1-1.4); ABSOLUTE NEUT (AUTO) 8.2 10^3/uL (1.7-8.2); BASOPHILS % (AUTO) 0.3 % (0-2); EOSINOPHILS % (AUTO) 0.3 % (0-6); HEMATOCRIT 36.3 % (36.0-47.0); HEMOGLOBIN 12.1 g/dL (12.0-15.5); LYMPHOCYTES % (AUTO) 16.2 % (13-45); MEAN CORPUSCULAR HEMOGLOBIN 27.4 pg (27.0-33.4); MEAN CORPUSCULAR HGB CONC 33.4 g/dL (32.0-36.0); MEAN CORPUSCULAR VOLUME 82 fl (80-97); MONOCYTES % (AUTO) 3.9 % (3-13); PLATELET COUNT 329 10^3/uL (150-450); RED BLOOD COUNT 4.42 10^6/uL (3.72-5.28); RED CELL DISTRIBUTION WIDTH 16.2 % (11.5-14.0); SEGMENTED NEUTROPHILS % (AUTO) 79.3 % (42-78); TOTAL CELLS COUNTED % (AUTO) 100 %; WHITE BLOOD COUNT 10.4 10^3/uL (4.0-10.5)
[2020-04-12] MEDS ORDERED: HYDROCODONE/ACETAMINOPHEN 5-325 MG TABLET PO ONE (22:59)
[2020-04-12 23:00] LABS: ALKALINE PHOSPHATASE 83 U/L (38-126); ANION GAP 6 (5-19); ASPARTATE AMINO TRANSFERASE 45 U/L (14-36); BILIRUBIN,DIRECT 0.2 mg/dL (0.0-0.4); BILIRUBIN,TOTAL 0.3 mg/dL (0.2-1.3); BLOOD UREA NITROGEN 11 mg/dL (7-20); CALCIUM 9.7 mg/dL (8.4-10.2); CARBON DIOXIDE 27 mmol/L (22-30); CHLORIDE 106 mmol/L (98-107); GLUCOSE 115 mg/dL (75-110); POTASSIUM 4.8 mmol/L (3.6-5.0); TOTAL PROTEIN 7.1 g/dL (6.3-8.2)
--- NOTE | 2020-04-13 01:11 | RADIOLOGY REPORT (SQ) ---
EXAM DESCRIPTION: CT CHEST ANGIOGRAPHY WITH IV CONTRAST COMPLETED DATE/TME: 04/13/2020 00:42 CLINICAL HISTORY: 29 years, Female, CP. Diagnosed 2 days ago with costochondritis COMPARISON: Chest x-ray dated April 10, [address] dated September 26, 2019 TECHNIQUE: Postcontrast angiographic images of the chest were obtained utilizing 100 mL Omnipaque 350 intravenously. This examination was performed according to a CT angiographic (CTA) protocol with 3D post-processing. This involves 3D reconstructions, MIPS, volume rendered images and/or shaded surface rendering. Images stored on PACS. All CT scanners at this facility use dose modulation, iterative reconstruction, and/or weight based dosing when appropriate to reduce radiation dose to as low as reasonably achievable (ALARA). [facility]: Dose Right [facility]: CareDose [facility]: Dose Right [facility]: Teradose 4D [facility]: Smart Crackle LIMITATIONS: None. FINDINGS: There is no evidence of pulmonary embolus. The heart size is within normal limits. The lungs are clear. Thoracic aorta and main coronary artery normal in caliber. Major central airways are patent. There is no pleural effusion or pneumothorax. No enlarged lymph nodes are seen. There is no acute or suspicious bony abnormality. Images of the upper abdomen again reveal hepatic steatosis. IMPRESSION: No evidence of pulmonary embolus. No acute abnormality is seen. TECHNICAL DOCUMENTATION: Quality ID # [id number]: Final reports with documentation of one or more dose reduction techniques (e.g., Automated exposure control, adjustment of the mA and/or kV according to patient size, use of iterative reconstruction technique) copyright 2011 [employer]- All Rights Reserved
[2020-04-13 01:19] VITALS: BP 142/82
--- NOTE | 2020-04-13 07:39 | EKG REPORT ---
SEVERITY:- ABNORMAL ECG - SINUS RHYTHM VENTRICULAR PREMATURE COMPLEX NONSPECIFIC ST-T CHANGES- ANTERIOR LEADS : Confirmed by: Mingo Padilla MD 13-Apr-2020 07:38:45
== END 2020-04-13 01:36 | disposition home or self-care (01) ==
LOC: ER 21:00
DX: M94.0 Chondrocostal junction syndrome [Tietze] (principal); R06.02 Shortness of breath; R07.89 Other chest pain; I10 Essential (primary) hypertension; Z96.643 Presence of artificial hip joint, bilateral
CPT/HCPCS: 93005; 99285; 96361; 96374; 96375; 36415; 83690; 85025; 80053; 84484; 71275; 93010; J1200; J2930; J1885; J7030